=== PATIENT | male | born 1965 | race American Indian/Alaskan Native ===

== ENCOUNTER 2017-08-22 13:10 | Emergency (ER) | payer BC, MEDICARE ==
[2017-08-22] MEDS ORDERED: ASPIRIN PO ONE (13:24)
[2017-08-22 14:13] LABS: Basophils # (Auto) 0.1 K/mm3 (0.0-0.1); Basophils % (Auto) 0.9 % (0.0-1.8); Eosinophils # (Auto) 0.1 K/mm3 (0.0-0.4); Eosinophils % (Auto) 1.1 % (0.0-4.3); Hematocrit 47.7 % (35.5-45.6); Hemoglobin 15.8 gm/dl (11.8-15.2); Lymphocytes # (Auto) 1.6 K/mm3 (1.2-5.4); Lymphocytes % (Auto) 27.2 % (13.4-35.0); Mean Corpuscular HGB Conc 33 % (32-34); Mean Corpuscular Hemoglobin 32 pg (28-32); Mean Corpuscular Volume 96 fl (84-94); Monocytes # (Auto) 0.5 K/mm3 (0.0-0.8); Monocytes % (Auto) 8.3 % (0.0-7.3); Platelet Count 286 K/mm3 (140-440); Red Blood Count 4.97 M/mm3 (3.65-5.03); Red Cell Distribution Width 12.7 % (13.2-15.2)
[2017-08-22 14:35] LABS: BUN/Creatinine Ratio 15; Blood Urea Nitrogen 17 mg/dL (9-20); Calcium 10.1 mg/dL (8.4-10.2); Hemolysis Index 12
--- NOTE | 2017-08-22 20:48 | Emergency Department Report ---
ED Chest Pain HPI - General Chief Complaint: Chest Pain Stated Complaint: CHEST PAINS Time Seen by Provider: 08/22/17 20:47 Source: patient Mode of arrival: Ambulatory Limitations: No Limitations - History of Present Illness Initial Comments: Patient presents with complaint of several episodes of brief, intermittent sharp , aching left sided chest pain, approximately 3 episodes over for the past several days, with some minor sharp discomfort in his left arm as well. Each episode was associated with some activity, either bending over, or reaching with his arm, lasted approximately 15 seconds, subsided without any secondary effects. Discomfort in the arm subsided at approximately the same time. He did not experience any secondary symptoms, no diaphoresis, no radiation elsewhere, no heaviness in the chest, no difficulty breathing, no nausea or vomiting. He does report intermittent episodes of a burning sensation in his middle chest radiating up into his throat, from time to time, generally associated with laying down. He has not had any prior diagnosis, either cardiac or gastrointestinal, and is in good general health, with no history of heart disease, gastric intestinal disease, or diabetes, and he follows with primary care doctor regularly, but takes no routine medications. He does not take aspirin routinely either. He is not a smoker. He is scheduled for his next physical examination in the next 3 or 4 weeks. Patient is asymptomatic at time of examination, but has been comfortable throughout his emergency department stay. -: Sudden Onset: other (with movements, bending or reaching) Pain Location: left chest Pain Radiation: LUE Severity scale (0 -10): 3 Quality: sharp Consistency: intermittent, now resolved Improves With: nothing Worsens With: movement re: denies: nausea, vomting, diaphoresis Other Symptoms: denies: cough, fever Treatments Prior to Arrival: none Aspirin use within the Past 7 Days: (0) No - Related Data Previous Rx's Medication Instructions Recorded Last Taken Type Acetaminophen/Codeine [Tylenol #3] 1 tab PO Q6H PRN #15 tab 01/23/15 Unknown Rx Cyclobenzaprine [Flexeril 10 MG 10 mg PO TID PRN #12 tablet 01/23/15 Unknown Rx TAB] Allergies Allergy/AdvReac Type Severity Reaction Status Date / Time No Known Allergies Allergy Verified 08/22/17 20:48 Heart Score - HEART Score History: Slightly suspicious EKG: Normal Age: 45-65 Risk factors: 1-2 risk factors Troponin: < normal limit HEART Score: 2 ED Review of Systems ROS: Stated complaint: CHEST PAINS Other details as noted in HPI Comment: All other systems reviewed and negative Constitutional: see HPI. denies: chills, fever, weakness Respiratory: no symptoms reported. denies: cough, orthopnea, shortness of breath, SOB with exertion, SOB at rest Cardiovascular: as per HPI Endocrine: no symptoms reported Gastrointestinal: other (burning reflux sensations, separate from current complaint, intermittent). denies: abdominal pain, nausea, vomiting Genitourinary: denies: urgency, dysuria Musculoskeletal: back pain (chronic) Skin: denies: rash, lesions Neurological: denies: headache, weakness, paresthesias Hematological/Lymphatic: denies: easy bleeding, easy bruising ED Past Medical Hx - Past Medical History Previous Medical History?: Yes Additional medical history: chronic back pain. Hypercholesterolemia - Surgical History Past Surgical History?: No - Family History Family history: no significant - Social History Smoking Status: Never Smoker Substance Use Type: None - Medications Home Medications: Home Medications Medication Instructions Recorded Confirmed Last Taken Type Acetaminophen/Codeine [Tylenol #3] 1 tab PO Q6H PRN #15 tab 01/23/15 Unknown Rx Cyclobenzaprine [Flexeril 10 MG 10 mg PO TID PRN #12 tablet 01/23/15 Unknown Rx TAB] ED Physical Exam - General Limitations: No Limitations General appearance: alert, in no apparent distress - Head Head exam: Present: atraumatic, normocephalic - Eye Eye exam: Present: normal appearance - ENT ENT exam: Present: mucous membranes moist - Neck Neck exam: Present: normal inspection, full ROM. Absent: tenderness - Respiratory Respiratory exam: Present: normal lung sounds bilaterally. Absent: wheezes, rales, rhonchi - Cardiovascular Cardiovascular Exam: Present: regular rate, normal heart sounds - GI/Abdominal GI/Abdominal exam: Present: soft. Absent: tenderness, guarding, rebound - Rectal Rectal exam: Present: deferred - Extremities Exam Extremities exam: Present: normal inspection, full ROM. Absent: tenderness - Back Exam Back exam: Present: normal inspection, full ROM. Absent: tenderness, CVA tenderness (R), CVA tenderness (L), muscle spasm, paraspinal tenderness - Neurological Exam Neurological exam: Present: alert, oriented X3 - Psychiatric Psychiatric exam: Present: normal affect, normal mood - Skin Skin exam: Present: warm, dry, intact, normal color. Absent: rash ED Course Vital Signs 08/22/17 08/22/17 08/22/17 13:19 17:09 20:44 Temperature 99.4 F 98.4 F Pulse Rate 97 H 85 78 Respiratory 18 16 16 Rate Blood Pressure 136/98 Blood Pressure 158/102 168/95 [Left] O2 Sat by Pulse 98 98 98 Oximetry 08/22/17 20:52 Temperature Pulse Rate Respiratory 18 Rate Blood Pressure Blood Pressure [Left] O2 Sat by Pulse 98 Oximetry BERTA score - Berta Score Age > 65: (0) No Aspirin use within the Past 7 Days: (0) No 3 or more CAD Risk Factors: (0) No 2 or more Angina events in past 24 hrs: (0) No Known CAD with more than 50% Stenosis: (0) No Elevated Cardiac Markers: (0) No ST Deviation Greater than 0.5mm: (0) No BERTA Score: 0 ED Medical Decision Making - Lab Data Result diagrams: 08/22/17 13:59 08/22/17 13:59 - EKG Data -: EKG Interpreted by Ny EKG shows normal: sinus rhythm, axis (normal QRS access at 69), intervals ( normal OR and QRS intervals, normal QT interval of 408 ms corrected.), QRS complexes (normal QRS complexes), ST-T waves (normal ST and T-wave segments.) - EKG Data When compared to previous EKG there are: previous EKG unavailable - Medical Decision Making Patient has intermittent brief episodes of chest discomfort which is clearly musculoskeletal in nature, associated with activity such as movement or reaching , and has no symptoms are worrisome for acute coronary disease. He has 3 negative troponin levels, has been stable, and has essentially normal examination. He is stable for discharge home, and my only to recommendations are that patient started on low-dose aspirin on a regular basis, and that he have provocative testing, either with nuclear cardiac scan or cardiac stress testing, but this can be safely arranged on an outpatient basis. He has a physician follow-up in within a month, and should be able to have all of this arranged by that time. - Differential Diagnosis muscle skeletal chest wall pain, esophageal reflux, acute cardiac syndrome, Critical Care Time: No Critical care attestation.: If time is entered above; I have spent that time in minutes in the direct care of this critically ill patient, excluding procedure time. ED Disposition Clinical Impression: Non-cardiac chest pain Disposition: DC-01 TO HOME OR SELFCARE Is pt being admited?: No Does the pt Need Aspirin: No Condition: Stable Instructions: Chest Pain (ED) Additional Instructions: Examination today was stable, EKG was stable with no signs of heart damage or instability, and you had 3 negative cardiac blood tests. Your symptoms are more suggestive of musculoskeletal discomfort, and do not suggest a cardiac origin W discomfort. Nonetheless, we recommend that you have provocative testing, which tests your heart activity and function while it is under stress, and this can be safely arranged in your primary care doctor's office. primary care physician at the beginning of the week, but them know that you were seen here in the emergency department and that we recommended that you have a stress test or provocative testing, and they can make further arrangements to have this performed on an outpatient basis. He may continue with her regular activities before, and we also recommend that you may want to consider taking low-dose aspirin daily, such as 81 mg per day. You may return to the emergency department at any time if he have any additional worrisome symptoms, and we will give you an additional examination for any persistence of symptoms. Referrals: PRIMARY CAREMD [Primary Care Provider] - 3-5 Days Time of Disposition: 21:31
[2017-08-22 22:16] VITALS: BP 147/86
== END 2017-08-22 22:16 | disposition home or self-care (01) ==
LOC: ED 13:10
DX: R07.9 Chest pain, unspecified (principal)
CPT/HCPCS: 36415; 80048; 84484; 85025; 93005; 93010

== ENCOUNTER 2018-06-15 05:53 | Inpatient (IN) | payer BC ==
--- NOTE | 2018-06-04 09:56 | Anesthesia Consultation ---
Anesthesia Consult and Med Hx Date of service: 06/04/18 - Airway Anesthetic Teeth Evaluation: Good ROM Head & Neck: Adequate Mental/Hyoid Distance: Adequate Mallampati Class: Class II Intubation Access Assessment: Probably Good - Pulmonary Exam CTA: Yes - Cardiac Exam Cardiac Exam: RRR - Pre-Operative Health Status ASA Pre-Surgery Classification: ASA2 Proposed Anesthetic Plan: General - Pulmonary Hx Smoking: No Hx Sleep Apnea: No (TONY PRE SCREEN HIGH RISK) - Cardiovascular System Hx Hypertension: Yes (X 6 MONTHS) - Central Nervous System Hx Back Pain: Yes (NECK AND CHRONIC BACK PAIN) - Other Systems Hx Cancer: Yes
[2018-06-04 10:11] LABS: Eosinophils # (Auto) 0.1 K/mm3 (0.0-0.4); Eosinophils % (Auto) 1.9 % (0.0-4.3); Hematocrit 44.5 % (35.5-45.6); Hemoglobin 15.4 gm/dl (11.8-15.2); Lymphocytes # (Auto) 1.1 K/mm3 (1.2-5.4); Lymphocytes % (Auto) 24.3 % (13.4-35.0); Mean Corpuscular HGB Conc 35 % (32-34); Mean Corpuscular Volume 96 fl (84-94); Monocytes # (Auto) 0.3 K/mm3 (0.0-0.8); Monocytes % (Auto) 6.1 % (0.0-7.3); Platelet Count 281 K/mm3 (140-440); Red Blood Count 4.66 M/mm3 (3.65-5.03); Red Cell Distribution Width 12.6 % (13.2-15.2)
[2018-06-04 10:21] LABS: INR 0.91 (0.87-1.13)
[2018-06-04 10:22] LABS: Partial Thromboplastin Time 23.2 Sec. (24.2-36.6)
[2018-06-04 10:31] LABS: Albumin 4.3 g/dL (3.9-5); BUN/Creatinine Ratio 16; Blood Urea Nitrogen 13 mg/dL (9-20); Calcium 9.2 mg/dL (8.4-10.2); Hemolysis Index 177
[2018-06-04 10:58] LABS: Alanine Aminotransferase 45 units/L (7-56)
[~2018-06-15 05:53] MED LIST: ANCEF/STERILE WATER 2 GM/20 ML IV NR; NEURONTIN PO NR; VERSED IV NR
[2018-06-15] MEDS ORDERED: VERSED IV NR (06:00)
[2018-06-15] MEDS ORDERED: NACL BACTERIOSTATIC INFILTRATI ONE (06:17)
[2018-06-15] MEDS: LACTATED RINGERS 1,000 ML IV SCH (06:30)
[2018-06-15] MEDS ORDERED: DIPRIVAN 10 MG/ML IV ONE (07:14)
[2018-06-15] MEDS ORDERED: ZEMURON IV ONE (07:14)
[2018-06-15] MEDS ORDERED: DILAUDID ONE (07:14)
[2018-06-15] MEDS ORDERED: XYLOCAINE MPF 2% ONE (07:14)
[2018-06-15] MEDS ORDERED: METHYLENE BLUE ONE (07:38)
--- NOTE | 2018-06-15 07:59 | Anesthesia Day of Surgery ---
Anesthesia Day of Surgery - Day of Surgery Patient Examined: Yes Patient H&P Reviewed: Yes Patient is NPO: Yes
[2018-06-15] MEDS ORDERED: DILAUDID IV PRN (08:02)
[2018-06-15] MEDS ORDERED: ACD-A 500 ML IV ONE (08:23)
[2018-06-15] MEDS ORDERED: THROMBIN (BOVINE) TP ONE ×2 (08:23→09:39)
[2018-06-15] MEDS ORDERED: CALCIUM CHLORIDE IV ONE ×2 (08:23→09:38)
[2018-06-15] MEDS ORDERED: SUBLIMAZE ONE ×2 (08:43→10:46)
[2018-06-15] MEDS ORDERED: METHYLENE BLUE IV ONE (09:36)
[2018-06-15] MEDS ORDERED: ACD-A IV ONE (09:37)
[2018-06-15] MEDS ORDERED: WATER FOR IRRIG STERILE IR ONE (09:40)
[2018-06-15] MEDS ORDERED: NEO SYNEPHRINE/NS Syringe(OR USE) IV ONE (10:15)
[2018-06-15] MEDS ORDERED: ZOFRAN ONE (10:49)
[2018-06-15] MEDS ORDERED: DECADRON ONE (10:49)
[2018-06-15] MEDS ORDERED: BLOXIVERZ ONE (10:49)
[2018-06-15] MEDS ORDERED: ROBINUL ONE (10:49)
[2018-06-15] MEDS ORDERED: ZOFRAN IV PRN (10:56)
[2018-06-15] MEDS ORDERED: AMBIEN PO PRN (10:56)
[2018-06-15] MEDS ORDERED: NARCAN 0.4 MG/1 ML IV PRN (10:56)
[2018-06-15] MEDS ORDERED: ANCEF/NS 1 GM/50 ML 1 GM/50 ML BAG IV SCH (11:00)
[2018-06-15] MEDS ORDERED: ZANAFLEX PO PRN (11:00)
[2018-06-15] MEDS ORDERED: APRESOLINE IV ONE (11:25)
[2018-06-15] MEDS ORDERED: APRESOLINE ONE (11:27)
[2018-06-15] MEDS ORDERED: NORMODYNE IV ONE ×2 (12:30→12:31)
--- NOTE | 2018-06-15 13:29 | Operative Report ---
PREOPERATIVE DIAGNOSIS: Prostate cancer, Alessandra 3+4. POSTOPERATIVE DIAGNOSIS: Prostate cancer, Phelps 3+4. PROCEDURE: Robotic-assisted laparoscopic prostatectomy. SURGEON: Alan Ivory MD DICTATING MACHINE MECHANIC: Swapna Paula. ANESTHESIA: General. ESTIMATED BLOOD LOSS: 400 mL. FLUIDS: Crystalloid and Cell Saver. COMPLICATIONS: None. DRAINS: Emir-Chapman drain x 1. INDICATIONS: This 53-year-old gentleman was originally seen by Dr. Metz with an elevated PSA of 4.2. He underwent transrectal ultrasound and biopsy. His prostate is found to have Alessandra 3+4 at the prostate cancer, two of 12 cores. He was seen by me as a second opinion because he was interested in robotic prostatectomy. Risks, benefits, and complications were explained. The patient agreed to proceed with surgical intervention. DESCRIPTION OF PROCEDURE: The patient was taken to the operative suite, placed in a supine position. After adequate general anesthesia, he was prepped and draped in a sterile fashion. Lucero catheter was placed on the operative field. It was placed in a modified Trendelenburg position. A 1 cm supraumbilical incision was made with the Bovie. Towel clips were placed. Anterior traction was provided. Veress needle was placed. Drop test was negative. Opening pressure was 4 cm of water. Insufflation of the abdomen with CO2 to 15 cm of water, 15 cm cephalad to pubic symphysis was marked and 9 cm and an additional 9 cm was marked on the abdomen. The 10 mm supraumbilical port was placed with the camera followed by the 8 mm ports on the left side under direct vision and then an 8 mm on the right side, a 10 mm and 5 mm helper port was also placed on the right side. The patient was then placed in an exaggerated Trendelenburg position. The patient was noted to have some adhesions on the left side of the colon, which was lysed without difficulty. The robotic graspers were then placed, but the posterior aspect of the prostate and bladder on stretch. The second arch was scored exposing the seminal vesicles and vas deferens. Dissection down to the apex of the prostate was performed without difficulty. Seminal vesicles and vas deferens were dissected out. Vas deferens was then transected. Copious irrigation was performed. Adequate hemostasis achieved. Attention was then taken to the anterior abdominal wall lateral to the lateral umbilical ligament was scored down to the pubic rami and then across the midline to allow the bladder flap to drop. Dorsal vein complex could be identified. It was then controlled with a 60 mm vascular stapler. The endopelvic fascia was opened bilaterally exposing the prostate, which was dissected out. The neurovascular bundle could not be appreciated bilaterally with the area was avoided and it was dissected in an athermal fashion as much as possible. Manipulation of the Lucero allowed the bladder neck to be appreciated was scored anteriorly. Lucero catheter could be appreciated. It was deflated and then used for anterior traction. The patient had a significant median lobe. Indigo carmine was administered intravenously to assist in identifying the ureteral orifices bilaterally and they were uninjured. Bladder neck was transected posteriorly, exposing the seminal vesicles and vas deferens. It was pulled anteriorly and then the lateral pedicles were identified, controlled with the vascular stapler. The Beto were used to dissect down to the apex of the prostate. The distal aspect of the prostate was transected, dissected free and then the prostate was placed in an EndoCatch bag. Copious irrigation was performed. Adequate hemostasis achieved. Bladder neck was then tapered down to a size of an 18-Palestinian Lucero catheter, tapered down at the 5 o'clock and 7 o'clock positions using 2-0 Vicryl in interrupted fashion. Double armed V-Loc stitch was then placed at the 6 o'clock position of the bladder neck corresponding aspect of the urethra and a running stitch was performed bilaterally. A new Lucero catheter was placed into the bladder without difficulty. Anastomotic stitch was cinched down. It was irrigated. No leak, no blood clots. A 15 mL sterile water in the balloon. The V-Loc stitch was then placed at the posterior aspect of the pubic symphysis to aid incontinence. Copious irrigation was performed. Adequate hemostasis achieved. Platelet rich plasma and platelet poor plasma was injected around the anastomosis. A 10 mm Emir-Chapman drain was brought out through the robotic port on the left side tied into position with 2-0 silk. The robot was undocked. The patient was placed in a supine position. The supraumbilical incision was extended to allow removal of the prostate. Rectus fascia was then closed with 0 Vicryl in a [id number] fashion. The skin was closed with 3-0 Monocryl in an interrupted fashion. Emir-Chapman drain was secured with 2-0 silk at the skin. Lucero catheter site port was folded over and tied with 0 silk in interrupted fashion. The patient tolerated the procedure well and was extubated and taken to recovery room. He will be observed overnight. Swapna Paula was present throughout the procedure at the bedside to assist with surgical dissection. The patient will go home on Bactrim and Lisle. JOB# [id number] [facility]
--- NOTE | 2018-06-15 13:29 | Consultation ---
History of Present Illness - Reason for Consult Consult date: 06/15/18 Requesting physician: HENRIK IVORY - History of Present Illness 53 YO Male with HTN, HLD admitted to [facility] for elective prostate surgery. Consult placed by Dr. Ivory for medical management. Pt seen and evaluated upon arrival to his room. Pt denies fever, chills, CP, palpitations, NVD, Trauma, BRBPR, Unintentional weight loss, night sweats, bone pain, or recent ill contacts. No reported nursing events. Pr resting comfortably and states that his pain is controlled at time of exam. Past History Past Medical History: hypertension, hyperlipidemia Past Surgical History: Other (Prostate) Social history: , lives with family. denies: smoking, alcohol abuse, prescription drug abuse Family history: hypertension Medications and Allergies Allergies Allergy/AdvReac Type Severity Reaction Status Date / Time No Known Allergies Allergy Verified 08/22/17 20:48 Home Medications Medication Instructions Recorded Confirmed Last Taken Type HYDROcodone/ACETAMINOPHEN 1 each PO PRN PRN 06/01/18 06/15/18 06/14/18 History [Hydrocodone-Acetamin 5-325 mg] Rosuvastatin (Nf) [Crestor] 5 mg PO QHS 06/01/18 06/01/18 06/14/18 History amLODIPine [Norvasc] 5 mg PO DAILY 06/01/18 06/15/18 06/15/18 05:30 History tiZANidine [Zanaflex] 4 mg PO PRN PRN 06/01/18 06/01/18 06/14/18 History Active Meds: Active Medications Acetaminophen/Hydrocodone Bitart ([place] 5/325) 2 each PO Q4H PRN PRN Reason: Pain, Moderate (4-6) Amlodipine Besylate (Norvasc) 5 mg PO DAILY CHARISSE Atorvastatin Calcium (Lipitor) 10 mg PO QHS CHARISSE Cefazolin Sodium (Ancef/Sterile Water 2 Gm/20 Ml) 2 gm IV PREOP NR Stop: 06/15/18 18:00 Hydromorphone HCl (Dilaudid) 0.5 mg IV Q10MIN PRN PRN Reason: Pain , Severe (7-10) Stop: 06/15/18 20:00 Last Admin: 06/15/18 11:37 Dose: 0.5 mg Documented by: Lactated Ringer's (Lactated Ringers) 1,000 mls @ 75 mls/hr IV DIRECT CHARISSE Last Admin: 06/15/18 06:30 Dose: 75 mls/hr Documented by: Cefazolin Sodium (Ancef/Ns 1 Gm/50 Ml) 1 gm in 50 mls @ 100 mls/hr IV Q8H CHARISSE; Protocol Stop: 06/15/18 19:29 Lactated Ringer's (Lactated Ringers) 1,000 mls @ 125 mls/hr IV DIRECT CHARISSE Midazolam HCl (Versed) 2 mg IV PREOP NR Stop: 06/15/18 18:00 Last Admin: 06/15/18 07:15 Dose: 2 mg Documented by: Morphine Sulfate (Morphine) 4 mg IV Q4H PRN PRN Reason: Pain , Severe (7-10) Naloxone HCl (Narcan 0.4 Mg/1 Ml) 0.1 mg IV Q2MIN PRN PRN Reason: Res Rate </= 8 or 02 SAT < 92% Ondansetron HCl (Zofran) 4 mg IV Q8H PRN PRN Reason: Nausea And Vomiting Tizanidine HCl (Zanaflex) 4 mg PO PRN PRN PRN Reason: Spasms Zolpidem Tartrate (Ambien) 5 mg PO QHS PRN PRN Reason: Sleep Review of Systems Constitutional: no weight loss, no weight gain, no fever, no chills Ears, nose, mouth and throat: no ear pain, no ear discharge, no tinnitis, no decreased hearing, no nose pain Cardiovascular: no chest pain, no orthopnea, no palpitations, no rapid/irregular heart beat, no edema Respiratory: no cough, no cough with sputum, no excessive sputum, no hemoptysis, no shortness of breath Gastrointestinal: no nausea, no vomiting, no diarrhea, no constipation, no change in bowel habits Genitourinary Male: no hematuria, no flank pain, no discharge, no urinary frequency, no urinary hesitancy, no nocturia Rectal: no pain, no incontinence, no bleeding Musculoskeletal: no neck stiffness, no neck pain, no shooting arm pain, no arm numbness/tingling, no low back pain, no shooting leg pain Integumentary: no rash, no pruritis, no redness, no sores, no wounds, no jaundice Neurological: no head injury, no transient paralysis, no paralysis, no weakness, no parathesias, no numbness, no tingling, no seizures Psychiatric: no anxiety, no memory loss, no change in sleep habits, no sleep disturbances, no insomnia, no hypersomnia, no change in appetite, no change in libido Endocrine: no cold intolerance, no heat intolerance, no polyphagia, no excessive thirst, no polydipsia, no polyuria, no nocturia Hematologic/Lymphatic: no easy bruising, no easy bleeding, no lymphadenopathy, no lymphedema Allergic/Immunologic: no urticaria, no allergic rhinitis, no persistent infections, no anaphylaxis Exam - Constitutional Vitals: Temp Pulse Resp BP Pulse Ox 98.5 F 104 H 18 119/72 97 06/15/18 13:15 06/15/18 13:15 06/15/18 13:15 06/15/18 13:15 06/15/18 13:15 General appearance: Present: no acute distress, well-nourished - EENT Eyes: Present: PERRL ENT: hearing intact, clear oral mucosa - Neck Neck: Present: supple, normal ROM - Respiratory Respiratory effort: normal Respiratory: bilateral: CTA - Cardiovascular Heart Sounds: Present: S1 & S2. Absent: rub, click - Extremities Extremities: pulses symmetrical, No edema Peripheral Pulses: within normal limits - Abdominal General gastrointestinal: Present: soft, non-tender, non-distended, normal bowel sounds Male genitourinary: Present: normal - Integumentary Integumentary: Present: clear, warm, dry - Musculoskeletal Musculoskeletal: gait normal, strength equal bilaterally - Psychiatric Psychiatric: appropriate mood/affect, intact judgment & insight - Neurologic Neurologic: CNII-XII intact, moves all extremities Results - Labs CBC & Chem 7: 06/04/18 09:20 06/04/18 09:20 Assessment and Plan - Patient Problems (1) HTN (hypertension) Current Visit: Yes Status: Acute Qualifiers: Hypertension type: essential hypertension Qualified Code(s): I10 - Essential (primary) hypertension Plan to address problem: Monitor BP q shift, resume prehospital medication, supportive care. (2) HLD (hyperlipidemia) Current Visit: Yes Status: Acute Qualifiers: Hyperlipidemia type: mixed hyperlipidemia Qualified Code(s): E78.2 - Mixed hyperlipidemia Plan to address problem: Low cholesterol diet, risk factor reduction therapy, statin therapy
--- NOTE | 2018-06-15 13:51 | Post Anesthesia Evaluation ---
- Post Anesthesia Evaluation Patient Participated: Yes Airway Patent: Yes Stable Respiratory Function: Yes Nausea/Vomiting: No Temp > 96.8F: Yes Pain Manageable: Yes Adequeate Hydration: Yes Anesthesia Complications: No
[2018-06-15] MEDS ORDERED: NACL 0.9% 1,000 ML IR ONE (15:13)
[2018-06-15] MEDS: MORPHINE IV PRN (15:17)
[2018-06-15] MEDS ORDERED: APRESOLINE IV PRN (17:31)
[2018-06-15 21:12] LABS: Hematocrit 42.7 % (35.5-45.6); Hemoglobin 14.3 gm/dl (11.8-15.2); Mean Corpuscular HGB Conc 34 % (32-34); Mean Corpuscular Volume 97 fl (84-94); Platelet Count 295 K/mm3 (140-440); Red Blood Count 4.41 M/mm3 (3.65-5.03); Red Cell Distribution Width 12.8 % (13.2-15.2)
[2018-06-15 21:34] LABS: BUN/Creatinine Ratio 8; Blood Urea Nitrogen 9 mg/dL (9-20); Calcium 9.3 mg/dL (8.4-10.2); Hemolysis Index 11
[2018-06-15] MEDS: NORCO 5/325 PO PRN (21:55)
[2018-06-15] MEDS ORDERED: NON-FORMULARY (Rosuvastatin (Nf) 5 MG) PO SCH (22:00)
[2018-06-15 23:09] LABS: Band Neutrophils # (Manual) 0.5 K/mm3; Basophils % (Manual) 0 % (0.0-1.8); Eosinophils % (Manual) 0 % (0.0-4.3); Total Cells Counted 100
[2018-06-15 23:10] LABS: Ovalocytes Few; Platelet Estimate Consistent w Auto
--- NOTE | 2018-06-16 00:15 | Cat Scan Report ---
PROCEDURE: CT ANGIO CHEST TECHNIQUE: A CT angiogram was performed of the chest following the intravenous injection of IV contr ast. Rotational, sagittal, and coronal MIP reconstructions were reviewed. There are no previous studi es available for comparison. HISTORY: TACHYCARDIA WITH ELEVATED D-DIMER R/O PE COMPARISONS: None FINDINGS: The heart size and thoracic aorta appear normal. There is no evidence of pericardial effusion. There is no evidence of pulmonary embolus or vascular congestion. The lungs reveal mild bibasilar atelectas is. There are no infiltrates or effusions. At the thoracic inlet there are multiple subcentimeter in diameter low-attenuation foci in both thyroid lobes. In the upper abdomen there are small foci of free air. There is subcutaneous air along the right ches t wall. There is also a 2.1 cm low density left adrenal nodule. The skeletal structures do not show a ny acute changes. IMPRESSION: No evidence of embolus, vascular congestion, or aortic dissection. Mild bibasilar atelectasis. No infiltrates or effusions. Post operative pneumoperitoneum noted in the upper abdomen along with postsurgical changes along the right side of the abdominal wall. The findings were discussed with nurse Melissa Aguilar at 12:12 AM on 06/16/2018. This document is electronically signed by Brayan Casey MD., June 16 2018 12:13:23 AM ET
[2018-06-16] MEDS: LACTATED RINGERS 1,000 ML IV SCH ×3 (00:27→13:41)
[2018-06-16] MEDS: ANCEF/NS 1 GM/50 ML 1 GM/50 ML BAG IV SCH ×2 (01:07→08:13)
[2018-06-16 04:46] LABS: Basophils % (Auto) 0.3 % (0.0-1.8); Hematocrit 39.8 % (35.5-45.6); Hemoglobin 13.5 gm/dl (11.8-15.2); Lymphocytes # (Auto) 0.6 K/mm3 (1.2-5.4); Lymphocytes % (Auto) 5.5 % (13.4-35.0); Mean Corpuscular HGB Conc 34 % (32-34); Mean Corpuscular Volume 95 fl (84-94); Monocytes # (Auto) 0.8 K/mm3 (0.0-0.8); Monocytes % (Auto) 7.9 % (0.0-7.3); Platelet Count 271 K/mm3 (140-440); Red Blood Count 4.17 M/mm3 (3.65-5.03); Red Cell Distribution Width 12.5 % (13.2-15.2)
[2018-06-16 05:02] LABS: BUN/Creatinine Ratio 10; Blood Urea Nitrogen 10 mg/dL (9-20); Calcium 9.2 mg/dL (8.4-10.2); Hemolysis Index 28
[2018-06-16] MEDS: NORVASC PO SCH ×2 (08:13→10:00)
--- NOTE | 2018-06-16 12:26 | Progress Note ---
Assessment and Plan Assessment and plan: --Status post robotic laparoscopy prostatectomy; Management per urology --Hypertension; moderate control, continue current antihypertensives and when necessary medications --Dyslipidemia; continue statin --Elevated D dimers; negative PE on CTA chest Check lower extremity venous Doppler to rule out DVT --DVT prophylaxis; SCDs, postop status Defer pharmacologic anticoagulation to urology History Interval history: Patient seen and examined medical records reviewed No new events reported by the nursing staff Patient complains of mild pain Alert awake oriented In mild distress Vital signs reviewed Hospitalist Physical - Constitutional Vitals: Temp Pulse Resp BP Pulse Ox 98.1 F 78 18 111/73 99 06/16/18 07:54 06/16/18 08:13 06/16/18 07:54 06/16/18 08:13 06/16/18 07:39 General appearance: Present: no acute distress, well-nourished - EENT Eyes: Present: PERRL, EOM intact - Neck Neck: Present: supple, normal ROM - Respiratory Respiratory effort: normal Respiratory: bilateral: diminished, negative: rales, rhonchi, wheezing - Cardiovascular Rhythm: regular Heart Sounds: Present: S1 & S2 - Extremities Extremities: no ischemia, No edema - Abdominal General gastrointestinal: soft, non-tender, non-distended, normal bowel sounds - Integumentary Integumentary: Present: clear, warm - Psychiatric Psychiatric: appropriate mood/affect, cooperative - Neurologic Neurologic: moves all extremities Results - Labs CBC & Chem 7: 06/16/18 04:31 06/16/18 04:31 Labs: Laboratory Last Values WBC 10.0 K/mm3 (4.5-11.0) 06/16/18 04:31 RBC 4.17 M/mm3 (3.65-5.03) 06/16/18 04:31 Hgb 13.5 gm/dl (11.8-15.2) 06/16/18 04:31 Hct 39.8 % (35.5-45.6) 06/16/18 04:31 MCV 95 fl (84-94) H 06/16/18 04:31 MCH 32 pg (28-32) 06/16/18 04:31 MCHC 34 % (32-34) 06/16/18 04:31 RDW 12.5 % (13.2-15.2) L 06/16/18 04:31 Plt Count 271 K/mm3 (140-440) 06/16/18 04:31 Lymph % (Auto) 5.5 % (13.4-35.0) L 06/16/18 04:31 [place] % (Auto) 7.9 % (0.0-7.3) H 06/16/18 04:31 Eos % (Auto) 0.0 % (0.0-4.3) 06/16/18 04:31 Baso % (Auto) 0.3 % (0.0-1.8) 06/16/18 04:31 Lymph # 0.6 K/mm3 (1.2-5.4) L 06/16/18 04:31 [place] # 0.8 K/mm3 (0.0-0.8) 06/16/18 04:31 Eos # 0.0 K/mm3 (0.0-0.4) 06/16/18 04:31 Baso # 0.0 K/mm3 (0.0-0.1) 06/16/18 04:31 Add Manual Diff Complete 06/15/18 20:52 Total Counted 100 06/15/18 20:52 Seg Neutrophils % 86.3 % (40.0-70.0) H 06/16/18 04:31 Seg Neuts % (Manual) 84.0 % (40.0-70.0) H 06/15/18 20:52 Band Neutrophils % 4.0 % 06/15/18 20:52 Lymphocytes % (Manual) 9.0 % (13.4-35.0) L 06/15/18 20:52 Reactive Lymphs % (Man) 0 % 06/15/18 20:52 Monocytes % (Manual) 3.0 % (0.0-7.3) 06/15/18 20:52 Eosinophils % (Manual) 0 % (0.0-4.3) 06/15/18 20:52 Basophils % (Manual) 0 % (0.0-1.8) 06/15/18 20:52 Metamyelocytes % 0 % 06/15/18 20:52 Myelocytes % 0 % 06/15/18 20:52 Promyelocytes % 0 % 06/15/18 20:52 Blast Cells % 0 % 06/15/18 20:52 Nucleated RBC % Not Reportable 06/15/18 20:52 Seg Neutrophils # 8.6 K/mm3 (1.8-7.7) H 06/16/18 04:31 Seg Neutrophils # Man 10.8 K/mm3 (1.8-7.7) H 06/15/18 20:52 Band Neutrophils # 0.5 K/mm3 06/15/18 20:52 Lymphocytes # (Manual) 1.2 K/mm3 (1.2-5.4) 06/15/18 20:52 Abs React Lymphs (Man) 0.0 K/mm3 06/15/18 20:52 Monocytes # (Manual) 0.4 K/mm3 (0.0-0.8) 06/15/18 20:52 Eosinophils # (Manual) 0.0 K/mm3 (0.0-0.4) 06/15/18 20:52 Basophils # (Manual) 0.0 K/mm3 (0.0-0.1) 06/15/18 20:52 Metamyelocytes # 0.0 K/mm3 06/15/18 20:52 Myelocytes # 0.0 K/mm3 06/15/18 20:52 Promyelocytes # 0.0 K/mm3 06/15/18 20:52 Blast Cells # 0.0 K/mm3 06/15/18 20:52 WBC Morphology Not Reportable 06/15/18 20:52 Hypersegmented Neuts Not Reportable 06/15/18 20:52 Hyposegmented Neuts Not Reportable 06/15/18 20:52 Hypogranular Neuts Not Reportable 06/15/18 20:52 Smudge Cells Not Reportable 06/15/18 20:52 Toxic Granulation Not Reportable 06/15/18 20:52 Toxic Vacuolation Not Reportable 06/15/18 20:52 Dohle Bodies Not Reportable 06/15/18 20:52 Pelger-Huet Anomaly Not Reportable 06/15/18 20:52 Scottie Rods Not Reportable 06/15/18 20:52 Platelet Estimate Consistent w auto 06/15/18 20:52 Clumped Platelets Not Reportable 06/15/18 20:52 Plt Clumps, EDTA Not Reportable 06/15/18 20:52 Large Platelets Not Reportable 06/15/18 20:52 Giant Platelets Not Reportable 06/15/18 20:52 Platelet Satelliting Not Reportable 06/15/18 20:52 Plt Morphology Comment Not Reportable 06/15/18 20:52 RBC Morphology Not Reportable 06/15/18 20:52 Dimorphic RBCs Not Reportable 06/15/18 20:52 Polychromasia Not Reportable 06/15/18 20:52 Hypochromasia Not Reportable 06/15/18 20:52 Poikilocytosis Not Reportable 06/15/18 20:52 Anisocytosis Not Reportable 06/15/18 20:52 Microcytosis Not Reportable 06/15/18 20:52 Macrocytosis Not Reportable 06/15/18 20:52 Spherocytes Not Reportable 06/15/18 20:52 Pappenheimer Bodies Not Reportable 06/15/18 20:52 Sickle Cells Not Reportable 06/15/18 20:52 Target Cells Not Reportable 06/15/18 20:52 Tear Drop Cells Not Reportable 06/15/18 20:52 Ovalocytes Few 06/15/18 20:52 Helmet Cells Not Reportable 06/15/18 20:52 Jerome-Ezel Bodies Not Reportable 06/15/18 20:52 [place] Rings Not Reportable 06/15/18 20:52 Jbphh Cells Not Reportable 06/15/18 20:52 Bite Cells Not Reportable 06/15/18 20:52 Crenated Cell Not Reportable 06/15/18 20:52 Elliptocytes Not Reportable 06/15/18 20:52 Acanthocytes (Spur) Not Reportable 06/15/18 20:52 Rouleaux Not Reportable 06/15/18 20:52 Hemoglobin C Crystals Not Reportable 06/15/18 20:52 Schistocytes Not Reportable 06/15/18 20:52 Malaria parasites Not Reportable 06/15/18 20:52 Wilmer Bodies Not Reportable 06/15/18 20:52 Hem Pathologist Commnt No 06/15/18 20:52 PT 12.8 Sec. (12.2-14.9) 06/04/18 09:20 INR 0.91 (0.87-1.13) 06/04/18 09:20 APTT 23.2 Sec. (24.2-36.6) L 06/04/18 09:20 D-Dimer 3533.79 ng/mlDDU (0-234) H 06/15/18 22:02 Sodium 135 mmol/L (137-145) L 06/16/18 04:31 Potassium 4.4 mmol/L (3.6-5.0) 06/16/18 04:31 Chloride 101.9 mmol/L (98-107) 06/16/18 04:31 Carbon Dioxide 26 mmol/L (22-30) 06/16/18 04:31 Anion Gap 12 mmol/L 06/16/18 04:31 BUN 10 mg/dL (9-20) 06/16/18 04:31 Creatinine 1.0 mg/dL (0.8-1.5) 06/16/18 04:31 Estimated GFR > 60 ml/min 06/16/18 04:31 BUN/Creatinine Ratio 10 % 06/16/18 04:31 Glucose 127 mg/dL (75-100) H 06/16/18 04:31 Calcium 9.2 mg/dL (8.4-10.2) 06/16/18 04:31 Total Bilirubin 0.90 mg/dL (0.1-1.2) 06/04/18 09:20 AST 42 units/L (5-40) H 06/04/18 09:20 ALT 45 units/L (7-56) 06/04/18 09:20 Alkaline Phosphatase 43 units/L (35-129) 06/04/18 09:20 Total Protein 7.0 g/dL (6.3-8.2) 06/04/18 09:20 Albumin 4.3 g/dL (3.9-5) 06/04/18 09:20 Albumin/Globulin Ratio 1.6 % 06/04/18 09:20 Blood Type A POSITIVE 06/15/18 06:30 Antibody Screen Negative 06/15/18 06:30 Active Medications - Current Medications Current Medications: Generic Name Dose Route Start Last Admin Trade Name Freq PRN Reason Stop Dose Admin Acetaminophen/Hydrocodone Bitart 2 each 06/15/18 10:56 06/15/18 21:55 [place] 5/325 PO 2 each Q4H PRN Administration Pain, Moderate (4-6) Amlodipine Besylate 5 mg 06/16/18 10:00 06/16/18 08:13 Norvasc PO 5 mg DAILY CHARISSE Administration Atorvastatin Calcium 10 mg 06/15/18 22:00 06/15/18 21:55 Lipitor PO 10 mg QHS CHARISSE Administration Hydralazine HCl 10 mg 06/15/18 17:31 Apresoline IV Q8HR PRN Hypertension Lactated Ringer's 1,000 mls @ 75 mls/hr 06/04/18 10:00 06/15/18 06:30 Lactated Ringers IV 75 mls/hr DIRECT CHARISSE Administration Lactated Ringer's 1,000 mls @ 125 mls/hr 06/15/18 11:00 06/16/18 00:27 Lactated Ringers IV 125 mls/hr DIRECT CHARISSE Administration Morphine Sulfate 4 mg 06/15/18 10:56 06/15/18 15:17 Morphine IV 4 mg Q4H PRN Administration Pain , Severe (7-10) Naloxone HCl 0.1 mg 06/15/18 10:56 Narcan 0.4 Mg/1 Ml IV Q2MIN PRN Res Rate </= 8 or 02 SAT < 92% Ondansetron HCl 4 mg 06/15/18 10:56 Zofran IV Q8H PRN Nausea And Vomiting Tizanidine HCl 4 mg 06/15/18 11:00 Zanaflex PO PRN PRN Spasms Zolpidem Tartrate 5 mg 06/15/18 10:56 Ambien PO QHS PRN Sleep
[2018-06-16] MEDS: NORCO 5/325 PO PRN (13:37)
[2018-06-16] MEDS: MORPHINE IV PRN ×2 (17:32→21:29)
--- NOTE | 2018-06-16 18:23 | Progress Note ---
Subjective Date of service: 06/16/18 Interval history: s/p robotic prostatectomy increased heart rate -----ct angio neg for PE + nausea today abd alittle distended labs ok au pink urine obs repeat labs in am ?home friday Objective - Constitutional Vitals: Vital Signs - 12hr 06/16/18 06/16/18 06/16/18 07:39 07:54 08:13 Temperature 98.1 F Pulse Rate 78 78 Respiratory 18 Rate Blood Pressure 111/73 Blood Pressure 111/73 [Left] O2 Sat by Pulse 99 Oximetry 06/16/18 06/16/18 12:24 12:25 Temperature 98.0 F Pulse Rate 90 87 Respiratory 18 Rate Blood Pressure 132/79 Blood Pressure [Left] O2 Sat by Pulse 100 100 Oximetry - Labs CBC & Chem 7: 06/16/18 04:31 06/16/18 04:31 Labs: Abnormal lab results 06/15/18 06/15/18 06/15/18 Range/Units 20:52 20:52 22:02 WBC 12.8 H (4.5-11.0) K/mm3 MCV 97 H (84-94) fl MCH 33 H (28-32) pg RDW 12.8 L (13.2-15.2) % Lymph % (Auto) (13.4-35.0) % [place] % (Auto) (0.0-7.3) % Lymph # (1.2-5.4) K/mm3 Seg Neutrophils % (40.0-70.0) % Seg Neuts % (Manual) 84.0 H (40.0-70.0) % Lymphocytes % (Manual) 9.0 L (13.4-35.0) % Seg Neutrophils # (1.8-7.7) K/mm3 Seg Neutrophils # Man 10.8 H (1.8-7.7) K/mm3 D-Dimer 3533.79 H (0-234) ng/mlDDU Sodium 134 L (137-145) mmol/L Glucose 160 H (75-100) mg/dL 06/16/18 06/16/18 Range/Units 04:31 04:31 WBC (4.5-11.0) K/mm3 MCV 95 H (84-94) fl MCH (28-32) pg RDW 12.5 L (13.2-15.2) % Lymph % (Auto) 5.5 L (13.4-35.0) % [place] % (Auto) 7.9 H (0.0-7.3) % Lymph # 0.6 L (1.2-5.4) K/mm3 Seg Neutrophils % 86.3 H (40.0-70.0) % Seg Neuts % (Manual) (40.0-70.0) % Lymphocytes % (Manual) (13.4-35.0) % Seg Neutrophils # 8.6 H (1.8-7.7) K/mm3 Seg Neutrophils # Man (1.8-7.7) K/mm3 D-Dimer (0-234) ng/mlDDU Sodium 135 L (137-145) mmol/L Glucose 127 H (75-100) mg/dL Medications & Allergies - Medications Allergies/Adverse Reactions: Allergies No Known Allergies Allergy (Verified 08/22/17 20:48) Home Medications: Home Medications Medication Instructions Recorded Confirmed Last Taken Type HYDROcodone/ACETAMINOPHEN 1 each PO PRN PRN 06/01/18 06/15/18 06/14/18 History [Hydrocodone-Acetamin 5-325 mg] Rosuvastatin (Nf) [Crestor] 5 mg PO QHS 06/01/18 06/01/18 06/14/18 History amLODIPine [Norvasc] 5 mg PO DAILY 06/01/18 06/15/18 06/15/18 05:30 History tiZANidine [Zanaflex] 4 mg PO PRN PRN 06/01/18 06/01/18 06/14/18 History Active Medications: Generic Name Dose Route Start Last Admin Trade Name Freq PRN Reason Stop Dose Admin Acetaminophen/Hydrocodone Bitart 2 each 06/15/18 10:56 06/16/18 13:37 [place] 5/325 PO 2 each Q4H PRN Administration Pain, Moderate (4-6) Amlodipine Besylate 5 mg 06/16/18 10:00 06/16/18 10:00 Norvasc PO Not Given DAILY CHARISSE Atorvastatin Calcium 10 mg 06/15/18 22:00 06/15/18 21:55 Lipitor PO 10 mg QHS CHARISSE Administration Hydralazine HCl 10 mg 06/15/18 17:31 Apresoline IV Q8HR PRN Hypertension Lactated Ringer's 1,000 mls @ 75 mls/hr 06/04/18 10:00 06/15/18 19:50 Lactated Ringers IV Infused DIRECT CHARISSE Infusion Lactated Ringer's 1,000 mls @ 125 mls/hr 06/15/18 11:00 06/16/18 13:41 Lactated Ringers IV 125 mls/hr DIRECT CHARISSE Administration Morphine Sulfate 4 mg 06/15/18 10:56 06/15/18 15:17 Morphine IV 4 mg Q4H PRN Administration Pain , Severe (7-10) Naloxone HCl 0.1 mg 06/15/18 10:56 Narcan 0.4 Mg/1 Ml IV Q2MIN PRN Res Rate </= 8 or 02 SAT < 92% Ondansetron HCl 4 mg 06/15/18 10:56 Zofran IV Q8H PRN Nausea And Vomiting Tizanidine HCl 4 mg 06/15/18 11:00 Zanaflex PO PRN PRN Spasms Zolpidem Tartrate 5 mg 06/15/18 10:56 Ambien PO QHS PRN Sleep
--- NOTE | 2018-06-16 21:44 | Vascular Lab Report ---
PROCEDURE: VL VENOUS DUPLEX LE BILAT TECHNIQUE: Routine Doppler compression imaging was obtained of the deep venous systems of both lower extremities. Augmentation maneuvers and waveforms recorded. HISTORY: elevated d dimers,r/o DVT COMPARISONS: None FINDINGS: All of the deep veins compress normally bilaterally. The waveforms appear normal. IMPRESSION: Normal exam. No evidence of DVT in either lower extremity.. This document is electronically signed by Brayan Casey MD., June 16 2018 09:42:59 PM ET
[2018-06-17] MEDS: MORPHINE IV PRN ×3 (05:54→18:53)
[2018-06-17] MEDS: LACTATED RINGERS 1,000 ML IV SCH ×2 (05:55→17:40)
[2018-06-17] MEDS: NORVASC PO SCH ×2 (07:50→10:00)
--- NOTE | 2018-06-17 14:58 | Progress Note ---
Assessment and Plan Assessment and plan: --Tachycardia; Check 12-lead EKG, to rule out arrhythmia Low-dose beta blockers, echocardiogram for LV function and ejection fraction Consider cardiology evaluation if abnormality noted on EKG --Abdominal discomfort and flatulence; Advised the patient to ambulate as tolerated semithacone/gassex when necessary --Status post robotic laparoscopy prostatectomy; Management per urology --Hypertension; moderate control, continue current antihypertensives and when necessary medications --Dyslipidemia; continue statin --Elevated D dimers; negative PE on CTA chest Check lower extremity venous Doppler to rule out DVT --DVT prophylaxis; SCDs, postop status Defer pharmacologic anticoagulation to urology History Interval history: Patient seen and examined medical records reviewed Patient feels slightly better, continues to have tachycardia Denies chest pain or shortness of breath Complaints of flatulence Vital signs noted Hospitalist Physical - Constitutional Vitals: Temp Pulse Resp BP Pulse Ox 99.3 F 122 H 18 149/95 99 06/17/18 12:22 06/17/18 12:22 06/17/18 12:22 06/17/18 12:22 06/17/18 13:29 General appearance: Present: no acute distress, well-nourished - EENT Eyes: Present: PERRL, EOM intact - Neck Neck: Present: supple, normal ROM - Respiratory Respiratory effort: normal Respiratory: bilateral: diminished, negative: rales, rhonchi, wheezing - Cardiovascular Rhythm: regular Heart Sounds: Present: S1 & S2 - Extremities Extremities: no ischemia, No edema - Abdominal General gastrointestinal: soft, non-tender, non-distended, normal bowel sounds - Integumentary Integumentary: Present: clear, warm - Psychiatric Psychiatric: appropriate mood/affect, cooperative - Neurologic Neurologic: moves all extremities Results - Labs CBC & Chem 7: 06/16/18 04:31 06/16/18 04:31 Labs: Laboratory Last Values WBC 10.0 K/mm3 (4.5-11.0) 06/16/18 04:31 RBC 4.17 M/mm3 (3.65-5.03) 06/16/18 04:31 Hgb 13.5 gm/dl (11.8-15.2) 06/16/18 04:31 Hct 39.8 % (35.5-45.6) 06/16/18 04:31 MCV 95 fl (84-94) H 06/16/18 04:31 MCH 32 pg (28-32) 06/16/18 04:31 MCHC 34 % (32-34) 06/16/18 04:31 RDW 12.5 % (13.2-15.2) L 06/16/18 04:31 Plt Count 271 K/mm3 (140-440) 06/16/18 04:31 Lymph % (Auto) 5.5 % (13.4-35.0) L 06/16/18 04:31 [place] % (Auto) 7.9 % (0.0-7.3) H 06/16/18 04:31 Eos % (Auto) 0.0 % (0.0-4.3) 06/16/18 04:31 Baso % (Auto) 0.3 % (0.0-1.8) 06/16/18 04:31 Lymph # 0.6 K/mm3 (1.2-5.4) L 06/16/18 04:31 [place] # 0.8 K/mm3 (0.0-0.8) 06/16/18 04:31 Eos # 0.0 K/mm3 (0.0-0.4) 06/16/18 04:31 Baso # 0.0 K/mm3 (0.0-0.1) 06/16/18 04:31 Add Manual Diff Complete 06/15/18 20:52 Total Counted 100 06/15/18 20:52 Seg Neutrophils % 86.3 % (40.0-70.0) H 06/16/18 04:31 Seg Neuts % (Manual) 84.0 % (40.0-70.0) H 06/15/18 20:52 Band Neutrophils % 4.0 % 06/15/18 20:52 Lymphocytes % (Manual) 9.0 % (13.4-35.0) L 06/15/18 20:52 Reactive Lymphs % (Man) 0 % 06/15/18 20:52 Monocytes % (Manual) 3.0 % (0.0-7.3) 06/15/18 20:52 Eosinophils % (Manual) 0 % (0.0-4.3) 06/15/18 20:52 Basophils % (Manual) 0 % (0.0-1.8) 06/15/18 20:52 Metamyelocytes % 0 % 06/15/18 20:52 Myelocytes % 0 % 06/15/18 20:52 Promyelocytes % 0 % 06/15/18 20:52 Blast Cells % 0 % 06/15/18 20:52 Nucleated RBC % Not Reportable 06/15/18 20:52 Seg Neutrophils # 8.6 K/mm3 (1.8-7.7) H 06/16/18 04:31 Seg Neutrophils # Man 10.8 K/mm3 (1.8-7.7) H 06/15/18 20:52 Band Neutrophils # 0.5 K/mm3 06/15/18 20:52 Lymphocytes # (Manual) 1.2 K/mm3 (1.2-5.4) 06/15/18 20:52 Abs React Lymphs (Man) 0.0 K/mm3 06/15/18 20:52 Monocytes # (Manual) 0.4 K/mm3 (0.0-0.8) 06/15/18 20:52 Eosinophils # (Manual) 0.0 K/mm3 (0.0-0.4) 06/15/18 20:52 Basophils # (Manual) 0.0 K/mm3 (0.0-0.1) 06/15/18 20:52 Metamyelocytes # 0.0 K/mm3 06/15/18 20:52 Myelocytes # 0.0 K/mm3 06/15/18 20:52 Promyelocytes # 0.0 K/mm3 06/15/18 20:52 Blast Cells # 0.0 K/mm3 06/15/18 20:52 WBC Morphology Not Reportable 06/15/18 20:52 Hypersegmented Neuts Not Reportable 06/15/18 20:52 Hyposegmented Neuts Not Reportable 06/15/18 20:52 Hypogranular Neuts Not Reportable 06/15/18 20:52 Smudge Cells Not Reportable 06/15/18 20:52 Toxic Granulation Not Reportable 06/15/18 20:52 Toxic Vacuolation Not Reportable 06/15/18 20:52 Dohle Bodies Not Reportable 06/15/18 20:52 Pelger-Huet Anomaly Not Reportable 06/15/18 20:52 Scottie Rods Not Reportable 06/15/18 20:52 Platelet Estimate Consistent w auto 06/15/18 20:52 Clumped Platelets Not Reportable 06/15/18 20:52 Plt Clumps, EDTA Not Reportable 06/15/18 20:52 Large Platelets Not Reportable 06/15/18 20:52 Giant Platelets Not Reportable 06/15/18 20:52 Platelet Satelliting Not Reportable 06/15/18 20:52 Plt Morphology Comment Not Reportable 06/15/18 20:52 RBC Morphology Not Reportable 06/15/18 20:52 Dimorphic RBCs Not Reportable 06/15/18 20:52 Polychromasia Not Reportable 06/15/18 20:52 Hypochromasia Not Reportable 06/15/18 20:52 Poikilocytosis Not Reportable 06/15/18 20:52 Anisocytosis Not Reportable 06/15/18 20:52 Microcytosis Not Reportable 06/15/18 20:52 Macrocytosis Not Reportable 06/15/18 20:52 Spherocytes Not Reportable 06/15/18 20:52 Pappenheimer Bodies Not Reportable 06/15/18 20:52 Sickle Cells Not Reportable 06/15/18 20:52 Target Cells Not Reportable 06/15/18 20:52 Tear Drop Cells Not Reportable 06/15/18 20:52 Ovalocytes Few 06/15/18 20:52 Helmet Cells Not Reportable 06/15/18 20:52 Jerome-[place] Bodies Not Reportable 06/15/18 20:52 [place] Rings Not Reportable 06/15/18 20:52 [place] Cells Not Reportable 06/15/18 20:52 Bite Cells Not Reportable 06/15/18 20:52 Crenated Cell Not Reportable 06/15/18 20:52 Elliptocytes Not Reportable 06/15/18 20:52 Acanthocytes (Spur) Not Reportable 06/15/18 20:52 Rouleaux Not Reportable 06/15/18 20:52 Hemoglobin C Crystals Not Reportable 06/15/18 20:52 Schistocytes Not Reportable 06/15/18 20:52 Malaria parasites Not Reportable 06/15/18 20:52 Wilmer Bodies Not Reportable 06/15/18 20:52 Hem Pathologist Commnt No 06/15/18 20:52 PT 12.8 Sec. (12.2-14.9) 06/04/18 09:20 INR 0.91 (0.87-1.13) 06/04/18 09:20 APTT 23.2 Sec. (24.2-36.6) L 06/04/18 09:20 D-Dimer 3533.79 ng/mlDDU (0-234) H 06/15/18 22:02 Sodium 135 mmol/L (137-145) L 06/16/18 04:31 Potassium 4.4 mmol/L (3.6-5.0) 06/16/18 04:31 Chloride 101.9 mmol/L (98-107) 06/16/18 04:31 Carbon Dioxide 26 mmol/L (22-30) 06/16/18 04:31 Anion Gap 12 mmol/L 06/16/18 04:31 BUN 10 mg/dL (9-20) 06/16/18 04:31 Creatinine 1.0 mg/dL (0.8-1.5) 06/16/18 04:31 Estimated GFR > 60 ml/min 06/16/18 04:31 BUN/Creatinine Ratio 10 % 06/16/18 04:31 Glucose 127 mg/dL (75-100) H 06/16/18 04:31 Calcium 9.2 mg/dL (8.4-10.2) 06/16/18 04:31 Total Bilirubin 0.90 mg/dL (0.1-1.2) 06/04/18 09:20 AST 42 units/L (5-40) H 06/04/18 09:20 ALT 45 units/L (7-56) 06/04/18 09:20 Alkaline Phosphatase 43 units/L (35-129) 06/04/18 09:20 Total Protein 7.0 g/dL (6.3-8.2) 06/04/18 09:20 Albumin 4.3 g/dL (3.9-5) 06/04/18 09:20 Albumin/Globulin Ratio 1.6 % 06/04/18 09:20 Blood Type A POSITIVE 06/15/18 06:30 Antibody Screen Negative 06/15/18 06:30 Active Medications - Current Medications Current Medications: Generic Name Dose Route Start Last Admin Trade Name Freq PRN Reason Stop Dose Admin Acetaminophen/Hydrocodone Bitart 2 each 06/15/18 10:56 06/16/18 13:37 [place] 5/325 PO 2 each Q4H PRN Administration Pain, Moderate (4-6) Amlodipine Besylate 5 mg 06/16/18 10:00 06/17/18 10:00 Norvasc PO Not Given DAILY CHARISSE Atorvastatin Calcium 10 mg 06/15/18 22:00 06/16/18 21:29 Lipitor PO 10 mg QHS CHARISSE Administration Hydralazine HCl 10 mg 06/15/18 17:31 Apresoline IV Q8HR PRN Hypertension Lactated Ringer's 1,000 mls @ 75 mls/hr 06/04/18 10:00 06/15/18 19:50 Lactated Ringers IV Infused DIRECT CHARISSE Infusion Lactated Ringer's 1,000 mls @ 125 mls/hr 06/15/18 11:00 06/17/18 05:55 Lactated Ringers IV 125 mls/hr DIRECT CHARISSE Administration Morphine Sulfate 4 mg 06/15/18 10:56 06/17/18 11:36 Morphine IV 4 mg Q4H PRN Administration Pain , Severe (7-10) Naloxone HCl 0.1 mg 06/15/18 10:56 Narcan 0.4 Mg/1 Ml IV Q2MIN PRN Res Rate </= 8 or 02 SAT < 92% Ondansetron HCl 4 mg 06/15/18 10:56 Zofran IV Q8H PRN Nausea And Vomiting Tizanidine HCl 4 mg 06/15/18 11:00 Zanaflex PO PRN PRN Spasms Zolpidem Tartrate 5 mg 06/15/18 10:56 Ambien PO QHS PRN Sleep
--- NOTE | 2018-06-17 16:24 | Progress Note ---
Subjective Date of service: 06/17/18 Interval history: s/p robotic prostatectomy increased heart rate -----ct angio neg for PE & nurse at bedside + nausea today abd alittle distended labs ok au pink urine A/P drain removed today cards to see for increased heart rate Objective - Constitutional Vitals: Vital Signs - 12hr 06/17/18 06/17/18 06/17/18 05:48 05:54 06:03 Temperature 98.8 F 97.6 F Pulse Rate 125 H 65 Respiratory 17 16 17 Rate Blood Pressure Blood Pressure 151/106 140/76 [Left] O2 Sat by Pulse 95 100 Oximetry 06/17/18 06/17/18 06/17/18 06:24 07:44 07:50 Temperature 98.7 F Pulse Rate 129 H 136 H Respiratory 17 18 Rate Blood Pressure 150/98 150/90 Blood Pressure [Left] O2 Sat by Pulse 97 Oximetry 06/17/18 06/17/18 12:22 13:29 Temperature 99.3 F Pulse Rate 122 H Respiratory 18 Rate Blood Pressure 149/95 Blood Pressure [Left] O2 Sat by Pulse 99 99 Oximetry - Labs CBC & Chem 7: 06/16/18 04:31 06/16/18 04:31 Medications & Allergies - Medications Allergies/Adverse Reactions: Allergies No Known Allergies Allergy (Verified 08/22/17 20:48) Home Medications: Home Medications Medication Instructions Recorded Confirmed Last Taken Type HYDROcodone/ACETAMINOPHEN 1 each PO PRN PRN 06/01/18 06/15/18 06/14/18 History [Hydrocodone-Acetamin 5-325 mg] Rosuvastatin (Nf) [Crestor] 5 mg PO QHS 06/01/18 06/01/18 06/14/18 History amLODIPine [Norvasc] 5 mg PO DAILY 06/01/18 06/15/18 06/15/18 05:30 History tiZANidine [Zanaflex] 4 mg PO PRN PRN 06/01/18 06/01/18 06/14/18 History Active Medications: Generic Name Dose Route Start Last Admin Trade Name Freq PRN Reason Stop Dose Admin Acetaminophen/Hydrocodone Bitart 2 each 06/15/18 10:56 06/16/18 13:37 Tibbie 5/325 PO 2 each Q4H PRN Administration Pain, Moderate (4-6) Amlodipine Besylate 5 mg 06/16/18 10:00 06/17/18 10:00 Norvasc PO Not Given DAILY CHARISSE Atorvastatin Calcium 10 mg 06/15/18 22:00 06/16/18 21:29 Lipitor PO 10 mg QHS CHARISSE Administration Hydralazine HCl 10 mg 06/15/18 17:31 Apresoline IV Q8HR PRN Hypertension Lactated Ringer's 1,000 mls @ 125 mls/hr 06/15/18 11:00 06/17/18 05:55 Lactated Ringers IV 125 mls/hr DIRECT CHARISSE Administration Metoprolol Tartrate 12.5 mg 06/17/18 22:00 Lopressor PO BID CHARISSE Morphine Sulfate 4 mg 06/15/18 10:56 06/17/18 11:36 Morphine IV 4 mg Q4H PRN Administration Pain , Severe (7-10) Naloxone HCl 0.1 mg 06/15/18 10:56 Narcan 0.4 Mg/1 Ml IV Q2MIN PRN Res Rate </= 8 or 02 SAT < 92% Ondansetron HCl 4 mg 06/15/18 10:56 Zofran IV Q8H PRN Nausea And Vomiting Tizanidine HCl 4 mg 06/15/18 11:00 Zanaflex PO PRN PRN Spasms Zolpidem Tartrate 5 mg 06/15/18 10:56 Ambien PO QHS PRN Sleep
[2018-06-17] MEDS: LOPRESSOR PO SCH (18:59)
[2018-06-18] MEDS: MORPHINE IV PRN ×4 (00:52→17:51)
[2018-06-18] MEDS: LACTATED RINGERS 1,000 ML IV SCH ×3 (04:07→20:23)
[2018-06-18] MEDS: NORVASC PO SCH (09:25)
[2018-06-18] MEDS: LOPRESSOR PO SCH ×3 (09:26→21:47)
--- NOTE | 2018-06-18 11:15 | Consultation ---
History of Present Illness Consult date: 06/18/18 Requesting physician: ARNOL LUNA Consult reason: tachycardia History of present illness: The pt is a 53 YO Male with HTN, HLD admitted to [facility] for elective prostate surgery and is s/p robotic prostatectomy. He is previously unknown to our practice. He was noted to have sinus tachycardia and thus cardiology has been c onsulted. Pt noted to be in ST with HR 100s on telemetry and ECG. Pt denies any current cardiac complaints. He denies any prior cardiac history. He denies any prior cardiac w/u. Past History Past Medical History: hypertension, hyperlipidemia Past Surgical History: Other (Prostate) Social history: , lives with family. denies: smoking, alcohol abuse, prescription drug abuse Family history: hypertension Medications and Allergies Allergies Allergy/AdvReac Type Severity Reaction Status Date / Time No Known Allergies Allergy Verified 08/22/17 20:48 Home Medications Medication Instructions Recorded Confirmed Last Taken Type HYDROcodone/ACETAMINOPHEN 1 each PO PRN PRN 06/01/18 06/15/18 06/14/18 History [Hydrocodone-Acetamin 5-325 mg] Rosuvastatin (Nf) [Crestor] 5 mg PO QHS 06/01/18 06/01/18 06/14/18 History amLODIPine [Norvasc] 5 mg PO DAILY 06/01/18 06/15/18 06/15/18 05:30 History tiZANidine [Zanaflex] 4 mg PO PRN PRN 06/01/18 06/01/18 06/14/18 History Active Meds: Active Medications Acetaminophen/Hydrocodone Bitart ([place] 5/325) 2 each PO Q4H PRN PRN Reason: Pain, Moderate (4-6) Last Admin: 06/16/18 13:37 Dose: 2 each Documented by: Amlodipine Besylate (Norvasc) 5 mg PO DAILY [facility] Last Admin: 06/18/18 09:25 Dose: 5 mg Documented by: Atorvastatin Calcium (Lipitor) 10 mg PO QHS [facility] Last Admin: 06/17/18 21:37 Dose: 10 mg Documented by: Hydralazine HCl (Apresoline) 10 mg IV Q8HR PRN PRN Reason: Hypertension Lactated Ringer's (Lactated Ringers) 1,000 mls @ 125 mls/hr IV DIRECT [facility] Last Admin: 06/18/18 04:07 Dose: 125 mls/hr Documented by: Metoprolol Tartrate (Lopressor) 12.5 mg PO BID [facility] Last Admin: 06/18/18 09:26 Dose: 12.5 mg Documented by: Morphine Sulfate (Morphine) 4 mg IV Q4H PRN PRN Reason: Pain , Severe (7-10) Last Admin: 06/18/18 07:52 Dose: 4 mg Documented by: Naloxone HCl (Narcan 0.4 Mg/1 Ml) 0.1 mg IV Q2MIN PRN PRN Reason: Res Rate </= 8 or 02 SAT < 92% Ondansetron HCl (Zofran) 4 mg IV Q8H PRN PRN Reason: Nausea And Vomiting Tizanidine HCl (Zanaflex) 4 mg PO PRN PRN PRN Reason: Spasms Zolpidem Tartrate (Ambien) 5 mg PO QHS PRN PRN Reason: Sleep Review of Systems All systems: negative (pain r/t prostate surgery) Cardiovascular: high blood pressure, no chest pain, no palpitations, no rapid/irregular heart beat, no edema, no syncope, no lightheadedness, no shortness of breath, no dyspnea on exertion, no paroxysmal nocturnal dyspnea, no leg edema, no decreased exercise tolerance Physical Examination Vital Signs Temp Pulse Resp BP Pulse Ox 98.7 F 92 H 20 151/96 100 06/04/18 09:30 06/04/18 09:30 06/04/18 09:30 06/04/18 09:30 06/04/18 09:30 General appearance: no acute distress HEENT: Positive: PERRL, Normocephaly, Mucus Membranes Moist Neck: Positive: neck supple, trachea midline Cardiac: Positive: Regular Rhythm, S1/S2 Lungs: Positive: clear to auscultation Neuro: Positive: Grossly Intact Abdomen: Negative: Tender Skin: Negative: Rash Musculoskeletal: No Pain Extremities: Absent: edema Results 06/16/18 04:31 06/16/18 04:31 - Imaging and Cardiology Echo: pending EKG: report reviewed, image reviewed EKG interpretations - Telemetry EKG Rhythm: Sinus Tachycardia - EKG Sinus rhythms and dysrhythmias: sinus tachycardia Assessment and Plan Cont IVF per primary. Optimize BPs and HR - increase lopressor to 25mg BID. Obtain thyroid profile. F/u echo. The patient has been seen in conjunction with Dr. Yasmine Kern who agrees with the assessment and plan of care. - Patient Problems (1) Sinus tachycardia Current Visit: Yes Status: Acute (2) S/P prostatectomy Current Visit: Yes Status: Acute (3) HTN (hypertension) Current Visit: Yes Status: Chronic Qualifiers: Hypertension type: essential hypertension Qualified Code(s): I10 - Essential (primary) hypertension (4) HLD (hyperlipidemia) Current Visit: Yes Status: Chronic Qualifiers: Hyperlipidemia type: mixed hyperlipidemia Qualified Code(s): E78.2 - Mixed hyperlipidemia
--- NOTE | 2018-06-18 17:27 | Progress Note ---
Subjective Date of service: 06/18/18 Interval history: s/p robotic prostatectomy increased heart rate -----ct angio neg for PE + nausea today abd alittle distended labs ok au pink urine A/P appreciate Cards input Objective - Constitutional Vitals: Vital Signs - 12hr 06/18/18 06/18/18 06/18/18 07:49 07:52 08:22 Temperature 99.1 F Pulse Rate 116 H Respiratory 19 19 19 Rate Blood Pressure 150/94 O2 Sat by Pulse 96 Oximetry 06/18/18 06/18/18 06/18/18 11:04 12:41 15:24 Temperature 98.8 F 98.6 F Pulse Rate 95 H 109 H 99 H Respiratory 18 18 Rate Blood Pressure 146/88 145/89 O2 Sat by Pulse 97 99 Oximetry 06/18/18 15:25 Temperature Pulse Rate 98 H Respiratory Rate Blood Pressure O2 Sat by Pulse 95 Oximetry - Labs CBC & Chem 7: 06/16/18 04:31 06/16/18 04:31 Medications & Allergies - Medications Allergies/Adverse Reactions: Allergies No Known Allergies Allergy (Verified 08/22/17 20:48) Home Medications: Home Medications Medication Instructions Recorded Confirmed Last Taken Type HYDROcodone/ACETAMINOPHEN 1 each PO PRN PRN 06/01/18 06/15/18 06/14/18 History [Hydrocodone-Acetamin 5-325 mg] Rosuvastatin (Nf) [Crestor] 5 mg PO QHS 06/01/18 06/01/18 06/14/18 History amLODIPine [Norvasc] 5 mg PO DAILY 06/01/18 06/15/18 06/15/18 05:30 History tiZANidine [Zanaflex] 4 mg PO PRN PRN 06/01/18 06/01/18 06/14/18 History Active Medications: Generic Name Dose Route Start Last Admin Trade Name Freq PRN Reason Stop Dose Admin Acetaminophen/Hydrocodone Bitart 2 each 06/15/18 10:56 06/16/18 13:37 [place] 5/325 PO 2 each Q4H PRN Administration Pain, Moderate (4-6) Amlodipine Besylate 5 mg 06/16/18 10:00 06/18/18 09:25 Norvasc PO 5 mg DAILY CHARISSE Administration Atorvastatin Calcium 10 mg 06/15/18 22:00 06/17/18 21:37 Lipitor PO 10 mg QHS CHARISSE Administration Hydralazine HCl 10 mg 06/15/18 17:31 Apresoline IV Q8HR PRN Hypertension Lactated Ringer's 1,000 mls @ 125 mls/hr 06/15/18 11:00 06/18/18 12:34 Lactated Ringers IV 125 mls/hr DIRECT CHARISSE Administration Metoprolol Tartrate 25 mg 06/18/18 13:00 06/18/18 12:41 Lopressor PO 25 mg BID CHARISSE Administration Morphine Sulfate 4 mg 06/15/18 10:56 06/18/18 12:41 Morphine IV 4 mg Q4H PRN Administration Pain , Severe (7-10) Naloxone HCl 0.1 mg 06/15/18 10:56 Narcan 0.4 Mg/1 Ml IV Q2MIN PRN Res Rate </= 8 or 02 SAT < 92% Ondansetron HCl 4 mg 06/15/18 10:56 Zofran IV Q8H PRN Nausea And Vomiting Tizanidine HCl 4 mg 06/15/18 11:00 Zanaflex PO PRN PRN Spasms Zolpidem Tartrate 5 mg 06/15/18 10:56 Ambien PO QHS PRN Sleep
--- NOTE | 2018-06-18 19:41 | Progress Note ---
Assessment and Plan Assessment and plan: --Sinus Tachycardia; Continue beta blockers, follow echocardiogram for LV function and ejection fraction Cardiology evaluation and recommendations noted --Status post robotic laparoscopy prostatectomy; Management per urology --Hypertension; moderate control, continue current antihypertensives and when necessary medications --Dyslipidemia; continue statin --Elevated D dimers; negative PE on CTA chest Negative DVT --DVT prophylaxis; SCDs, postop status Increase ambulation as tolerated Continue current management Plan of care reviewed with the patient and his nurse History Interval history: Patient seen and examined medical records reviewed Patient feels better no new complaints Vitals noted Hospitalist Physical - Constitutional Vitals: Temp Pulse Resp BP Pulse Ox 98.6 F 98 H 18 145/89 95 06/18/18 15:24 06/18/18 15:25 06/18/18 15:24 06/18/18 15:24 06/18/18 15:25 General appearance: Present: no acute distress, well-nourished - EENT Eyes: Present: PERRL, EOM intact - Neck Neck: Present: supple, normal ROM - Respiratory Respiratory effort: normal Respiratory: bilateral: diminished, negative: rales, rhonchi, wheezing - Cardiovascular Rhythm: regular Heart Sounds: Present: S1 & S2 - Extremities Extremities: no ischemia, No edema - Abdominal General gastrointestinal: soft, non-tender, non-distended, normal bowel sounds - Integumentary Integumentary: Present: clear, warm - Psychiatric Psychiatric: appropriate mood/affect, cooperative - Neurologic Neurologic: moves all extremities Results - Labs CBC & Chem 7: 06/16/18 04:31 06/16/18 04:31 Labs: Laboratory Last Values WBC 10.0 K/mm3 (4.5-11.0) 06/16/18 04:31 RBC 4.17 M/mm3 (3.65-5.03) 06/16/18 04:31 Hgb 13.5 gm/dl (11.8-15.2) 06/16/18 04:31 Hct 39.8 % (35.5-45.6) 06/16/18 04:31 MCV 95 fl (84-94) H 06/16/18 04:31 MCH 32 pg (28-32) 06/16/18 04:31 MCHC 34 % (32-34) 06/16/18 04:31 RDW 12.5 % (13.2-15.2) L 06/16/18 04:31 Plt Count 271 K/mm3 (140-440) 06/16/18 04:31 Lymph % (Auto) 5.5 % (13.4-35.0) L 06/16/18 04:31 [place] % (Auto) 7.9 % (0.0-7.3) H 06/16/18 04:31 Eos % (Auto) 0.0 % (0.0-4.3) 06/16/18 04:31 Baso % (Auto) 0.3 % (0.0-1.8) 06/16/18 04:31 Lymph # 0.6 K/mm3 (1.2-5.4) L 06/16/18 04:31 [place] # 0.8 K/mm3 (0.0-0.8) 06/16/18 04:31 Eos # 0.0 K/mm3 (0.0-0.4) 06/16/18 04:31 Baso # 0.0 K/mm3 (0.0-0.1) 06/16/18 04:31 Add Manual Diff Complete 06/15/18 20:52 Total Counted 100 06/15/18 20:52 Seg Neutrophils % 86.3 % (40.0-70.0) H 06/16/18 04:31 Seg Neuts % (Manual) 84.0 % (40.0-70.0) H 06/15/18 20:52 Band Neutrophils % 4.0 % 06/15/18 20:52 Lymphocytes % (Manual) 9.0 % (13.4-35.0) L 06/15/18 20:52 Reactive Lymphs % (Man) 0 % 06/15/18 20:52 Monocytes % (Manual) 3.0 % (0.0-7.3) 06/15/18 20:52 Eosinophils % (Manual) 0 % (0.0-4.3) 06/15/18 20:52 Basophils % (Manual) 0 % (0.0-1.8) 06/15/18 20:52 Metamyelocytes % 0 % 06/15/18 20:52 Myelocytes % 0 % 06/15/18 20:52 Promyelocytes % 0 % 06/15/18 20:52 Blast Cells % 0 % 06/15/18 20:52 Nucleated RBC % Not Reportable 06/15/18 20:52 Seg Neutrophils # 8.6 K/mm3 (1.8-7.7) H 06/16/18 04:31 Seg Neutrophils # Man 10.8 K/mm3 (1.8-7.7) H 06/15/18 20:52 Band Neutrophils # 0.5 K/mm3 06/15/18 20:52 Lymphocytes # (Manual) 1.2 K/mm3 (1.2-5.4) 06/15/18 20:52 Abs React Lymphs (Man) 0.0 K/mm3 06/15/18 20:52 Monocytes # (Manual) 0.4 K/mm3 (0.0-0.8) 06/15/18 20:52 Eosinophils # (Manual) 0.0 K/mm3 (0.0-0.4) 06/15/18 20:52 Basophils # (Manual) 0.0 K/mm3 (0.0-0.1) 06/15/18 20:52 Metamyelocytes # 0.0 K/mm3 06/15/18 20:52 Myelocytes # 0.0 K/mm3 06/15/18 20:52 Promyelocytes # 0.0 K/mm3 06/15/18 20:52 Blast Cells # 0.0 K/mm3 06/15/18 20:52 WBC Morphology Not Reportable 06/15/18 20:52 Hypersegmented Neuts Not Reportable 06/15/18 20:52 Hyposegmented Neuts Not Reportable 06/15/18 20:52 Hypogranular Neuts Not Reportable 06/15/18 20:52 Smudge Cells Not Reportable 06/15/18 20:52 Toxic Granulation Not Reportable 06/15/18 20:52 Toxic Vacuolation Not Reportable 06/15/18 20:52 Dohle Bodies Not Reportable 06/15/18 20:52 Pelger-Huet Anomaly Not Reportable 06/15/18 20:52 Scottie Rods Not Reportable 06/15/18 20:52 Platelet Estimate Consistent w auto 06/15/18 20:52 Clumped Platelets Not Reportable 06/15/18 20:52 Plt Clumps, EDTA Not Reportable 06/15/18 20:52 Large Platelets Not Reportable 06/15/18 20:52 Giant Platelets Not Reportable 06/15/18 20:52 Platelet Satelliting Not Reportable 06/15/18 20:52 Plt Morphology Comment Not Reportable 06/15/18 20:52 RBC Morphology Not Reportable 06/15/18 20:52 Dimorphic RBCs Not Reportable 06/15/18 20:52 Polychromasia Not Reportable 06/15/18 20:52 Hypochromasia Not Reportable 06/15/18 20:52 Poikilocytosis Not Reportable 06/15/18 20:52 Anisocytosis Not Reportable 06/15/18 20:52 Microcytosis Not Reportable 06/15/18 20:52 Macrocytosis Not Reportable 06/15/18 20:52 Spherocytes Not Reportable 06/15/18 20:52 Pappenheimer Bodies Not Reportable 06/15/18 20:52 Sickle Cells Not Reportable 06/15/18 20:52 Target Cells Not Reportable 06/15/18 20:52 Tear Drop Cells Not Reportable 06/15/18 20:52 Ovalocytes Few 06/15/18 20:52 Helmet Cells Not Reportable 06/15/18 20:52 [place] Bodies Not Reportable 06/15/18 20:52 [place] Rings Not Reportable 06/15/18 20:52 Jason Cells Not Reportable 06/15/18 20:52 Bite Cells Not Reportable 06/15/18 20:52 Crenated Cell Not Reportable 06/15/18 20:52 Elliptocytes Not Reportable 06/15/18 20:52 Acanthocytes (Spur) Not Reportable 06/15/18 20:52 Rouleaux Not Reportable 06/15/18 20:52 Hemoglobin C Crystals Not Reportable 06/15/18 20:52 Schistocytes Not Reportable 06/15/18 20:52 Malaria parasites Not Reportable 06/15/18 20:52 Wilmer Bodies Not Reportable 06/15/18 20:52 Hem Pathologist Commnt No 06/15/18 20:52 PT 12.8 Sec. (12.2-14.9) 06/04/18 09:20 INR 0.91 (0.87-1.13) 06/04/18 09:20 APTT 23.2 Sec. (24.2-36.6) L 06/04/18 09:20 D-Dimer 3533.79 ng/mlDDU (0-234) H 06/15/18 22:02 Sodium 135 mmol/L (137-145) L 06/16/18 04:31 Potassium 4.4 mmol/L (3.6-5.0) 06/16/18 04:31 Chloride 101.9 mmol/L (98-107) 06/16/18 04:31 Carbon Dioxide 26 mmol/L (22-30) 06/16/18 04:31 Anion Gap 12 mmol/L 06/16/18 04:31 BUN 10 mg/dL (9-20) 06/16/18 04:31 Creatinine 1.0 mg/dL (0.8-1.5) 06/16/18 04:31 Estimated GFR > 60 ml/min 06/16/18 04:31 BUN/Creatinine Ratio 10 % 06/16/18 04:31 Glucose 127 mg/dL (75-100) H 06/16/18 04:31 Calcium 9.2 mg/dL (8.4-10.2) 06/16/18 04:31 Total Bilirubin 0.90 mg/dL (0.1-1.2) 06/04/18 09:20 AST 42 units/L (5-40) H 06/04/18 09:20 ALT 45 units/L (7-56) 06/04/18 09:20 Alkaline Phosphatase 43 units/L (35-129) 06/04/18 09:20 Total Protein 7.0 g/dL (6.3-8.2) 06/04/18 09:20 Albumin 4.3 g/dL (3.9-5) 06/04/18 09:20 Albumin/Globulin Ratio 1.6 % 06/04/18 09:20 TSH 1.250 mlU/mL (0.270-4.200) 06/18/18 12:01 Free T4 1.25 ng/dL (0.76-1.46) 06/18/18 12:01 Blood Type A POSITIVE 06/15/18 06:30 Antibody Screen Negative 06/15/18 06:30 Active Medications - Current Medications Current Medications: Generic Name Dose Route Start Last Admin Trade Name Freq PRN Reason Stop Dose Admin Acetaminophen/Hydrocodone Bitart 2 each 06/15/18 10:56 06/16/18 13:37 [place] 5/325 PO 2 each Q4H PRN Administration Pain, Moderate (4-6) Amlodipine Besylate 5 mg 06/16/18 10:00 06/18/18 09:25 Norvasc PO 5 mg DAILY CHARISSE Administration Atorvastatin Calcium 10 mg 06/15/18 22:00 06/17/18 21:37 Lipitor PO 10 mg QHS CHARISSE Administration Hydralazine HCl 10 mg 06/15/18 17:31 Apresoline IV Q8HR PRN Hypertension Lactated Ringer's 1,000 mls @ 125 mls/hr 06/15/18 11:00 06/18/18 12:34 Lactated Ringers IV 125 mls/hr DIRECT CHARISSE Administration Metoprolol Tartrate 25 mg 06/18/18 13:00 06/18/18 12:41 Lopressor PO 25 mg BID CHARISSE Administration Morphine Sulfate 4 mg 06/15/18 10:56 06/18/18 17:51 Morphine IV 4 mg Q4H PRN Administration Pain , Severe (7-10) Naloxone HCl 0.1 mg 06/15/18 10:56 Narcan 0.4 Mg/1 Ml IV Q2MIN PRN Res Rate </= 8 or 02 SAT < 92% Ondansetron HCl 4 mg 06/15/18 10:56 Zofran IV Q8H PRN Nausea And Vomiting Tizanidine HCl 4 mg 06/15/18 11:00 Zanaflex PO PRN PRN Spasms Zolpidem Tartrate 5 mg 06/15/18 10:56 Ambien PO QHS PRN Sleep
[2018-06-18] MEDS: NORCO 5/325 PO PRN (20:23)
[2018-06-19] MEDS: NORCO 5/325 PO PRN (02:18)
[2018-06-19] MEDS: LACTATED RINGERS 1,000 ML IV SCH (03:28)
[2018-06-19] MEDS: NORVASC PO SCH (10:38)
[2018-06-19] MEDS: MORPHINE IV PRN (10:39)
[2018-06-19] MEDS: LOPRESSOR PO SCH (10:39)
--- NOTE | 2018-06-19 11:04 | Progress Note ---
Assessment and Plan clinically stable no sxs sr tte unremarkable july d/c home f/u me in office - Patient Problems (1) Sinus tachycardia Current Visit: Yes Status: Acute (2) HLD (hyperlipidemia) Current Visit: Yes Status: Chronic Qualifiers: Hyperlipidemia type: mixed hyperlipidemia Qualified Code(s): E78.2 - Mixed hyperlipidemia (3) HTN (hypertension) Current Visit: Yes Status: Chronic Qualifiers: Hypertension type: essential hypertension Qualified Code(s): I10 - Essential (primary) hypertension Subjective Date of service: 06/19/18 Interval history: no complaints Objective Vital Signs Temp Pulse Resp BP BP Pulse Ox 06/19/18 10:39 93 H 126/71 06/19/18 10:38 93 H 126/71 06/19/18 09:12 97 06/19/18 08:00 98.9 F 93 H 20 126/71 97 06/19/18 04:55 99.3 F 84 20 132/79 96 06/18/18 23:19 98.2 F 89 20 121/79 93 06/18/18 19:37 100.3 F H 107 H 20 138/87 94 06/18/18 15:25 98 H 95 06/18/18 15:24 98.6 F 99 H 18 145/89 99 06/18/18 12:41 109 H 06/18/18 11:04 98.8 F 95 H 18 146/88 97 - Physical Examination HEENT: Positive: PERRL, Normocephaly, Mucus Membranes Moist Neck: Positive: neck supple, trachea midline Neuro: Positive: Grossly Intact Abdomen: Negative: Tender Skin: Negative: Rash Musculoskeletal: No Pain Extremities: Absent: edema - Imaging and Cardiology EKG: report reviewed, image reviewed Echo: pending - EKG Sinus rhythms and dysrhythmias: sinus tachycardia
[2018-06-19 12:13] VITALS: BP 112/61
--- NOTE | 2018-06-19 12:57 | Discharge Summary ---
Providers - Providers Date of Admission: 06/17/18 14:16 Date of discharge: 06/19/18 Attending physician: HENRIK TEMPLETON 06/15/18 Consult to Case Management [CONS] Routine Services Needed at Discharge: Home Health Services Notified:: cm notified Additional Physician Instructions: eval for au care and dialy needs 06/15/18 10:56 Consult to Physician [CONS] Routine Comment: Consulting Provider: MICAH SWIFT Physician Instructions: Reason For Exam: HTN, CHOL 06/17/18 18:43 Consult to Physician [CONS] Routine Comment: COMPLETED - YAMEL Consulting Provider: VANESSA BARRERA Physician Instructions: Reason For Exam: Tachycardia[per urology] Primary care physician: HEMAL LERMA Hospitalization Condition: Stable Pertinent studies: ct angio neg for pe echo of heart normal Procedures: ct angio neg for pe echo of heart normal robotic prostatectomy Hospital course: increased heart rate prompted cards consult & med changed--improved Disposition: DC-01 TO HOME OR SELFCARE Core Measure Documentation - Palliative Care Palliative Care/ Comfort Measures: Not Applicable - Core Measures Any of the following diagnoses?: none - VTE Discharge Requirements Deep Vein Thrombosis/Pulmonary Embolism Present on Admission: No Has pt received <5 days of overlap therapy or INR<2.0: No Anticoagulant overlap therapy prescribed at discharge: No Contraindication No Overlap Therapy order at DC: Medical Contraindication - Acute [place] Discharge Requirements Aspirin at discharge: No Reason for no aspirin on DC: Surgical contraindication SY/ARB for LVSD if EF <40%: Not Applicable Reason for no SY/ARB: Medical contraindication Beta theron at discharge: No Reason for no beta theron on DC: Medical contraindication Statin for LDL = or >100 mg/dl on DC: Not Applicable Reason for no statin on DC: Surgical contraindication - Heart Failure Discharge Requirements SY/ARB for LVSD if EF <40%: Not Applicable Reason for no SY/ARB: Medical contraindication Beta theron at discharge: Yes - Stroke Discharge Requirements Statin for LDL = or >70 mg/dl on DC: Not Applicable Reason for no statin on DC: Medical Contraindication Anticoag for atrial fib/atrial flutter: Not Applicable Reason for no anticoag for AF/F on DC: Medical Contraindication Antithrombotic for ischemic stroke: No Reason for no antithrombotic on DC: Medical Contraindication Exam - Constitutional Vitals: Temp Pulse Resp BP Pulse Ox 97.5 F L 85 18 112/61 98 06/19/18 12:00 06/19/18 12:00 06/19/18 12:00 06/19/18 12:00 06/19/18 12:00 General appearance: Present: no acute distress, well-nourished - EENT Eyes: Present: PERRL ENT: hearing intact, clear oral mucosa - Neck Neck: Present: supple, normal ROM - Respiratory Respiratory effort: normal Respiratory: bilateral: CTA - Cardiovascular Heart Sounds: Present: S1 & S2. Absent: rub, click - Extremities Extremities: pulses symmetrical, No edema Peripheral Pulses: within normal limits - Abdominal General gastrointestinal: Present: soft, non-tender, non-distended, normal bowel sounds Male genitourinary: Present: normal - Integumentary Integumentary: Present: clear, warm, dry - Musculoskeletal Musculoskeletal: gait normal, strength equal bilaterally - Psychiatric Psychiatric: appropriate mood/affect, intact judgment & insight - Neurologic Neurologic: CNII-XII intact, moves all extremities Plan Activity: advance as tolerated Diet: regular Wound: open to air Follow up with: HEMAL LERMA MD [Primary Care Provider] - 7 Days
--- NOTE | 2018-06-19 13:31 | Progress Note ---
Assessment and Plan Assessment and plan: --Sinus Tachycardia; resolved Neurology evaluated --Status post robotic laparoscopy prostatectomy; Management per urology --Hypertension; moderate control, continue current antihypertensives and when necessary medications --Dyslipidemia; continue statin --Elevated D dimers; negative PE on CTA chest Negative DVT --DVT prophylaxis; SCDs, postop status Increase ambulation as tolerated Patient is medically stable for discharge History Interval history: Patient seen and examined medical records reviewed No new events reported by nursing Patient feels better ambulatory tolerating oral nutrition Vital signs noted Hospitalist Physical - Constitutional Vitals: Temp Pulse Resp BP Pulse Ox 97.5 F L 85 18 112/61 98 06/19/18 12:00 06/19/18 12:00 06/19/18 12:00 06/19/18 12:00 06/19/18 12:00 General appearance: Present: no acute distress, well-nourished - EENT Eyes: Present: PERRL, EOM intact - Neck Neck: Present: supple, normal ROM - Respiratory Respiratory effort: normal Respiratory: negative: rales, rhonchi, wheezing - Cardiovascular Rhythm: regular Heart Sounds: Present: S1 & S2 - Extremities Extremities: no ischemia, No edema - Abdominal General gastrointestinal: soft, non-tender, non-distended, normal bowel sounds - Integumentary Integumentary: Present: clear, warm - Psychiatric Psychiatric: appropriate mood/affect, cooperative - Neurologic Neurologic: CNII-XII intact, moves all extremities Results - Labs CBC & Chem 7: 06/16/18 04:31 06/16/18 04:31 Labs: Laboratory Last Values WBC 10.0 K/mm3 (4.5-11.0) 06/16/18 04:31 RBC 4.17 M/mm3 (3.65-5.03) 06/16/18 04:31 Hgb 13.5 gm/dl (11.8-15.2) 06/16/18 04:31 Hct 39.8 % (35.5-45.6) 06/16/18 04:31 MCV 95 fl (84-94) H 06/16/18 04:31 MCH 32 pg (28-32) 06/16/18 04:31 MCHC 34 % (32-34) 06/16/18 04:31 RDW 12.5 % (13.2-15.2) L 06/16/18 04:31 Plt Count 271 K/mm3 (140-440) 06/16/18 04:31 Lymph % (Auto) 5.5 % (13.4-35.0) L 06/16/18 04:31 [place] % (Auto) 7.9 % (0.0-7.3) H 06/16/18 04:31 Eos % (Auto) 0.0 % (0.0-4.3) 06/16/18 04:31 Baso % (Auto) 0.3 % (0.0-1.8) 06/16/18 04:31 Lymph # 0.6 K/mm3 (1.2-5.4) L 06/16/18 04:31 [place] # 0.8 K/mm3 (0.0-0.8) 06/16/18 04:31 Eos # 0.0 K/mm3 (0.0-0.4) 06/16/18 04:31 Baso # 0.0 K/mm3 (0.0-0.1) 06/16/18 04:31 Add Manual Diff Complete 06/15/18 20:52 Total Counted 100 06/15/18 20:52 Seg Neutrophils % 86.3 % (40.0-70.0) H 06/16/18 04:31 Seg Neuts % (Manual) 84.0 % (40.0-70.0) H 06/15/18 20:52 Band Neutrophils % 4.0 % 06/15/18 20:52 Lymphocytes % (Manual) 9.0 % (13.4-35.0) L 06/15/18 20:52 Reactive Lymphs % (Man) 0 % 06/15/18 20:52 Monocytes % (Manual) 3.0 % (0.0-7.3) 06/15/18 20:52 Eosinophils % (Manual) 0 % (0.0-4.3) 06/15/18 20:52 Basophils % (Manual) 0 % (0.0-1.8) 06/15/18 20:52 Metamyelocytes % 0 % 06/15/18 20:52 Myelocytes % 0 % 06/15/18 20:52 Promyelocytes % 0 % 06/15/18 20:52 Blast Cells % 0 % 06/15/18 20:52 Nucleated RBC % Not Reportable 06/15/18 20:52 Seg Neutrophils # 8.6 K/mm3 (1.8-7.7) H 06/16/18 04:31 Seg Neutrophils # Man 10.8 K/mm3 (1.8-7.7) H 06/15/18 20:52 Band Neutrophils # 0.5 K/mm3 06/15/18 20:52 Lymphocytes # (Manual) 1.2 K/mm3 (1.2-5.4) 06/15/18 20:52 Abs React Lymphs (Man) 0.0 K/mm3 06/15/18 20:52 Monocytes # (Manual) 0.4 K/mm3 (0.0-0.8) 06/15/18 20:52 Eosinophils # (Manual) 0.0 K/mm3 (0.0-0.4) 06/15/18 20:52 Basophils # (Manual) 0.0 K/mm3 (0.0-0.1) 06/15/18 20:52 Metamyelocytes # 0.0 K/mm3 06/15/18 20:52 Myelocytes # 0.0 K/mm3 06/15/18 20:52 Promyelocytes # 0.0 K/mm3 06/15/18 20:52 Blast Cells # 0.0 K/mm3 06/15/18 20:52 WBC Morphology Not Reportable 06/15/18 20:52 Hypersegmented Neuts Not Reportable 06/15/18 20:52 Hyposegmented Neuts Not Reportable 06/15/18 20:52 Hypogranular Neuts Not Reportable 06/15/18 20:52 Smudge Cells Not Reportable 06/15/18 20:52 Toxic Granulation Not Reportable 06/15/18 20:52 Toxic Vacuolation Not Reportable 06/15/18 20:52 Dohle Bodies Not Reportable 06/15/18 20:52 Pelger-Huet Anomaly Not Reportable 06/15/18 20:52 Scottie Rods Not Reportable 06/15/18 20:52 Platelet Estimate Consistent w auto 06/15/18 20:52 Clumped Platelets Not Reportable 06/15/18 20:52 Plt Clumps, EDTA Not Reportable 06/15/18 20:52 Large Platelets Not Reportable 06/15/18 20:52 Giant Platelets Not Reportable 06/15/18 20:52 Platelet Satelliting Not Reportable 06/15/18 20:52 Plt Morphology Comment Not Reportable 06/15/18 20:52 RBC Morphology Not Reportable 06/15/18 20:52 Dimorphic RBCs Not Reportable 06/15/18 20:52 Polychromasia Not Reportable 06/15/18 20:52 Hypochromasia Not Reportable 06/15/18 20:52 Poikilocytosis Not Reportable 06/15/18 20:52 Anisocytosis Not Reportable 06/15/18 20:52 Microcytosis Not Reportable 06/15/18 20:52 Macrocytosis Not Reportable 06/15/18 20:52 Spherocytes Not Reportable 06/15/18 20:52 Pappenheimer Bodies Not Reportable 06/15/18 20:52 Sickle Cells Not Reportable 06/15/18 20:52 Target Cells Not Reportable 06/15/18 20:52 Tear Drop Cells Not Reportable 06/15/18 20:52 Ovalocytes Few 06/15/18 20:52 Helmet Cells Not Reportable 06/15/18 20:52 Jerome-Barronett Bodies Not Reportable 06/15/18 20:52 Ensign Rings Not Reportable 06/15/18 20:52 Groton Cells Not Reportable 06/15/18 20:52 Bite Cells Not Reportable 06/15/18 20:52 Crenated Cell Not Reportable 06/15/18 20:52 Elliptocytes Not Reportable 06/15/18 20:52 Acanthocytes (Spur) Not Reportable 06/15/18 20:52 Rouleaux Not Reportable 06/15/18 20:52 Hemoglobin C Crystals Not Reportable 06/15/18 20:52 Schistocytes Not Reportable 06/15/18 20:52 Malaria parasites Not Reportable 06/15/18 20:52 Wilmer Bodies Not Reportable 06/15/18 20:52 Hem Pathologist Commnt No 06/15/18 20:52 PT 12.8 Sec. (12.2-14.9) 06/04/18 09:20 INR 0.91 (0.87-1.13) 06/04/18 09:20 APTT 23.2 Sec. (24.2-36.6) L 06/04/18 09:20 D-Dimer 3533.79 ng/mlDDU (0-234) H 06/15/18 22:02 Sodium 135 mmol/L (137-145) L 06/16/18 04:31 Potassium 4.4 mmol/L (3.6-5.0) 06/16/18 04:31 Chloride 101.9 mmol/L (98-107) 06/16/18 04:31 Carbon Dioxide 26 mmol/L (22-30) 06/16/18 04:31 Anion Gap 12 mmol/L 06/16/18 04:31 BUN 10 mg/dL (9-20) 06/16/18 04:31 Creatinine 1.0 mg/dL (0.8-1.5) 06/16/18 04:31 Estimated GFR > 60 ml/min 06/16/18 04:31 BUN/Creatinine Ratio 10 % 06/16/18 04:31 Glucose 127 mg/dL (75-100) H 06/16/18 04:31 Calcium 9.2 mg/dL (8.4-10.2) 06/16/18 04:31 Total Bilirubin 0.90 mg/dL (0.1-1.2) 06/04/18 09:20 AST 42 units/L (5-40) H 06/04/18 09:20 ALT 45 units/L (7-56) 06/04/18 09:20 Alkaline Phosphatase 43 units/L (35-129) 06/04/18 09:20 Total Protein 7.0 g/dL (6.3-8.2) 06/04/18 09:20 Albumin 4.3 g/dL (3.9-5) 06/04/18 09:20 Albumin/Globulin Ratio 1.6 % 06/04/18 09:20 TSH 1.250 mlU/mL (0.270-4.200) 06/18/18 12:01 Free T4 1.25 ng/dL (0.76-1.46) 06/18/18 12:01 Blood Type A POSITIVE 06/15/18 06:30 Antibody Screen Negative 06/15/18 06:30 Active Medications - Current Medications Current Medications: Generic Name Dose Route Start Last Admin Trade Name Freq PRN Reason Stop Dose Admin Acetaminophen/Hydrocodone Bitart 2 each 06/15/18 10:56 06/19/18 02:18 [place] 5/325 PO 2 each Q4H PRN Administration Pain, Moderate (4-6) Amlodipine Besylate 5 mg 06/16/18 10:00 06/19/18 10:38 Norvasc PO 5 mg DAILY CHARISSE Administration Atorvastatin Calcium 10 mg 06/15/18 22:00 06/18/18 21:47 Lipitor PO 10 mg QHS CHARISSE Administration Hydralazine HCl 10 mg 06/15/18 17:31 Apresoline IV Q8HR PRN Hypertension Lactated Ringer's 1,000 mls @ 125 mls/hr 06/15/18 11:00 06/19/18 03:28 Lactated Ringers IV 125 mls/hr DIRECT CHARISSE Administration Metoprolol Tartrate 25 mg 06/18/18 13:00 06/19/18 10:39 Lopressor PO 25 mg BID CHARISSE Administration Morphine Sulfate 4 mg 06/15/18 10:56 06/19/18 10:39 Morphine IV 4 mg Q4H PRN Administration Pain , Severe (7-10) Naloxone HCl 0.1 mg 06/15/18 10:56 Narcan 0.4 Mg/1 Ml IV Q2MIN PRN Res Rate </= 8 or 02 SAT < 92% Ondansetron HCl 4 mg 06/15/18 10:56 Zofran IV Q8H PRN Nausea And Vomiting Tizanidine HCl 4 mg 06/15/18 11:00 Zanaflex PO PRN PRN Spasms Zolpidem Tartrate 5 mg 06/15/18 10:56 Ambien PO QHS PRN Sleep
== END 2018-06-19 13:34 | disposition home or self-care (01) | DRG 708 ==
LOC: OR 05:53 → 3B-SURG 10:56 → OBSVTOIN 06-17 14:16
PROVIDERS: ADMIT Urology; ATTEND Urology
PROC: 0VT04ZZ Resection of Prostate, Percutaneous Endoscopic Approach (ICD-10-PCS; principal; 2018-06-15)
PROC: 8E0W4CZ Robotic Assisted Procedure of Trunk Region, Percutaneous Endoscopic Approach (ICD-10-PCS; 2018-06-15)
PROC: 0VT34ZZ Resection of Bilateral Seminal Vesicles, Percutaneous Endoscopic Approach (ICD-10-PCS; 2018-06-15)
PROC: 0VTQ4ZZ Resection of Bilateral Vas Deferens, Percutaneous Endoscopic Approach (ICD-10-PCS; 2018-06-15)
DX: C61 Malignant neoplasm of prostate (principal); R00.0 Tachycardia, unspecified; I10 Essential (primary) hypertension; G89.29 Other chronic pain; M54.9 Dorsalgia, unspecified; M54.2 Cervicalgia; E78.2 Mixed hyperlipidemia; Z82.49 Family history of ischemic heart disease and other diseases of the circulatory system; Z79.899 Other long term (current) drug therapy
CPT/HCPCS: 36415; 71275; 80048; 80053; 84439; 84443; 85007; 85025; 85379; 85610; 85730; 86850; 86900; 86901; 88309; 88341; 88342; 88344; 93005; 93010; 93306; 93970; G0378; A9270-GY; J0360; J0690; J1100; J1170; J2250; J2270; J2370; J2405; J2704; J2710; J3010; J7120; Q9967; Q9968

== ENCOUNTER 2018-06-21 17:12 | Observation (INO) | payer BC ==
--- NOTE | 2018-06-21 17:29 | Emergency Department Report ---
Blank Doc - Documentation Documentation: 53 y old male return to ED cc of throat closing up on him periodically twice a day for couple of seconds and then opens back up states hiccups all day. no cp,sob just had prostrate surgery 06/15/18 d/c 06/18/18 MAin side Eval
[2018-06-21] MEDS ORDERED: NACL 0.9% 1000 ML 1,000 ML IV ONE (17:48)
--- NOTE | 2018-06-21 17:54 | Emergency Department Report ---
ED Shortness of Breath HPI - General Chief Complaint: Dyspnea/Respdistress Stated Complaint: SOB Time Seen by Provider: 06/21/18 17:26 Source: patient Mode of arrival: Ambulatory Limitations: No Limitations - History of Present Illness Initial Comments: Patient is a 33-year-old male that presents to the emergency room for shortness of breath, hiccups, and a sensation of his throat closing. Patient states he was here 5 days ago for a prostate surgery which required intubation. Patient states that postoperatively he had tachycardia and had a CT of the chest done which was negative. Patient states this morning he developed a sensation of his throat was closing which is causing him to be short of breath and also giving him hiccups. Patient denies fever chills. Patient denies chest pain. Patient denies abdominal pain. Patient denies dysuria. Patient states that he is having palpitations at times. MD Complaint: shortness of breath -: Sudden Severity: severe Consistency: intermittent Improves With: rest, upright position Worsens With: lying flat Context: other (recent anesthsia and recent surgery) Associated Symptoms: palpitations, other (hiccups) Treatments Prior to Arrival: none - Related Data Home Oxygen Therapy: No Home Medications Medication Instructions Recorded Confirmed Last Taken HYDROcodone/ACETAMINOPHEN 1 each PO PRN PRN 06/01/18 06/15/18 06/14/18 [Hydrocodone-Acetamin 5-325 mg] Rosuvastatin (Nf) [Crestor] 5 mg PO QHS 06/01/18 06/01/18 06/14/18 amLODIPine [Norvasc] 5 mg PO DAILY 06/01/18 06/15/18 06/15/18 05:30 tiZANidine [Zanaflex] 4 mg PO PRN PRN 06/01/18 06/01/18 06/14/18 Allergies Allergy/AdvReac Type Severity Reaction Status Date / Time No Known Allergies Allergy Verified 08/22/17 20:48 ED Review of Systems ROS: Stated complaint: SOB Other details as noted in HPI Constitutional: denies: chills, fever Eyes: denies: eye pain, eye discharge, vision change ENT: throat pain. denies: ear pain Respiratory: shortness of breath. denies: cough, wheezing Cardiovascular: palpitations. denies: chest pain Endocrine: no symptoms reported Gastrointestinal: denies: abdominal pain, nausea, diarrhea Genitourinary: denies: urgency, dysuria Musculoskeletal: denies: back pain, joint swelling, arthralgia Skin: denies: rash, lesions Neurological: denies: headache, weakness, paresthesias Psychiatric: denies: anxiety, depression Hematological/Lymphatic: denies: easy bleeding, easy bruising ED Past Medical Hx - Past Medical History Previous Medical History?: Yes Hx Hypertension: Yes (X 6 MONTHS) Hx GERD: Yes Hx HIV: No Additional medical history: chronic back pain. Hypercholesterolemia - Surgical History Past Surgical History?: Yes Additional Surgical History: Prostatectomy 06/15/18 - Family History Family history: no significant - Social History Smoking Status: Never Smoker Substance Use Type: Alcohol - Medications Home Medications: Home Medications Medication Instructions Recorded Confirmed Last Taken Type HYDROcodone/ACETAMINOPHEN 1 each PO PRN PRN 06/01/18 06/15/18 06/14/18 History [Hydrocodone-Acetamin 5-325 mg] Rosuvastatin (Nf) [Crestor] 5 mg PO QHS 06/01/18 06/01/18 06/14/18 History amLODIPine [Norvasc] 5 mg PO DAILY 06/01/18 06/15/18 06/15/18 05:30 History tiZANidine [Zanaflex] 4 mg PO PRN PRN 06/01/18 06/01/18 06/14/18 History ED Physical Exam - General Limitations: No Limitations General appearance: alert, in no apparent distress - Head Head exam: Present: atraumatic, normocephalic - Eye Eye exam: Present: normal appearance, PERRL Pupils: Present: normal accommodation - ENT ENT exam: Present: normal exam, normal orophraynx, mucous membranes moist, TM's normal bilaterally, normal external ear exam - Neck Neck exam: Present: normal inspection, full ROM. Absent: tenderness - Respiratory Respiratory exam: Present: normal lung sounds bilaterally. Absent: respiratory distress, wheezes, rales, rhonchi, stridor - Cardiovascular Cardiovascular Exam: Present: regular rate, normal rhythm. Absent: systolic murmur, diastolic murmur, rubs, gallop - GI/Abdominal GI/Abdominal exam: Present: soft, normal bowel sounds. Absent: distended, tenderness, guarding - Rectal Rectal exam: Present: deferred - Extremities Exam Extremities exam: Present: normal inspection - Back Exam Back exam: Present: normal inspection - Neurological Exam Neurological exam: Present: alert, oriented X3 - Psychiatric Psychiatric exam: Present: normal affect, normal mood - Skin Skin exam: Present: warm, dry, intact, normal color. Absent: rash ED Course Vital Signs 06/21/18 06/21/18 06/21/18 17:26 17:51 18:41 Temperature 98.1 F Pulse Rate 124 H 112 H Respiratory 20 18 18 Rate Blood Pressure 130/86 Blood Pressure 132/87 [Right] O2 Sat by Pulse 98 Oximetry 06/21/18 06/21/18 06/21/18 19:00 19:15 19:30 Temperature Pulse Rate 104 H 103 H 101 H Respiratory 27 H 24 22 Rate Blood Pressure 126/81 130/80 135/83 Blood Pressure [Right] O2 Sat by Pulse 98 98 98 Oximetry 06/21/18 06/21/18 06/21/18 19:45 19:53 20:00 Temperature 99.3 F Pulse Rate 107 H 107 H 103 H Respiratory 17 19 15 Rate Blood Pressure 144/82 125/80 Blood Pressure 126/81 [Right] O2 Sat by Pulse 98 98 98 Oximetry 06/21/18 06/21/18 06/21/18 20:15 20:30 20:45 Temperature Pulse Rate 102 H 110 H 101 H Respiratory 21 20 16 Rate Blood Pressure 135/82 136/81 130/80 Blood Pressure [Right] O2 Sat by Pulse 98 97 98 Oximetry 06/21/18 06/21/18 06/21/18 21:00 21:30 22:00 Temperature Pulse Rate 104 H 103 H 106 H Respiratory 14 18 19 Rate Blood Pressure 124/83 128/81 140/79 Blood Pressure [Right] O2 Sat by Pulse 98 96 97 Oximetry 06/21/18 06/21/18 06/21/18 22:30 22:58 23:00 Temperature Pulse Rate 106 H 110 H 108 H Respiratory 22 19 16 Rate Blood Pressure 135/87 132/83 127/82 Blood Pressure [Right] O2 Sat by Pulse 97 96 96 Oximetry 06/21/18 06/21/18 06/22/18 23:30 23:34 00:00 Temperature Pulse Rate 114 H 110 H 103 H Respiratory 22 22 23 Rate Blood Pressure 138/90 138/90 135/85 Blood Pressure [Right] O2 Sat by Pulse 97 97 97 Oximetry 06/22/18 01:18 Temperature Pulse Rate 114 H Respiratory Rate Blood Pressure 123/78 Blood Pressure [Right] O2 Sat by Pulse Oximetry - Reevaluation(s) Reevaluation #1: Discussed all results with patient. Patient states he's had 3 episodes while being in the ER. Patient had CT done. Patient will be admitted to the hospitalist service. Patient agrees with plan of care. The most recent episode witnessed by the pet care technician. master technician describes it as the patient unable to breathe and an order for them to clear his throat the patient has to cough. 06/22/18 01:23 - Consultations Consultation #1: Hospital was consulted for admission. Hospitalist to admit patient. Hospitalist to assume care of patient. 06/22/18 01:23 ED Medical Decision Making - Lab Data Result diagrams: 06/21/18 18:07 06/21/18 18:07 - EKG Data -: EKG Interpreted by [facility] EKG shows normal: sinus rhythm, axis, intervals, QRS complexes, ST-T waves Rate: tachycardia - Radiology Data Radiology results: report reviewed cc: JOSELITO MACIAS III, MD Fluoro Time In Minutes: PROCEDURE: XR CHEST 1V AP HISTORY: Dyspnea FINDINGS: Single frontal view of the chest was acquired. The heart is normal in size. The lungs appear clear. The pleura and mediastinum are within normal limits. IMPRESSION: No active disease in the chest PROCEDURE: CT ANGIO CHEST TECHNIQUE: A CT angiogram was performed following the intravenous injection of iodinated contrast. Rotational, sagittal, and coronal MIP reconstructions were reviewed. HISTORY: sob. elevated d-dimer COMPARISONS: Chest x-ray 06/21/2018 FINDINGS: There is no evidence of pulmonary embolus or aortic dissection. The thoracic aorta is normal in caliber. The heart size is normal. There is no evidence of pericardial effusion. The lungs are clear. Pleural fluid is not seen. There is no evidence of adenopathy. At the thoracic inlet the thyroid gland appears normal. The skeletal structures do not show any acute changes. There is a small hiatal hernia with circumferential mucosal thickening in the distal esophagus. Esophagitis cannot be excluded. There is fluid in the distal esophagus possibly related to GE reflux. In the upper abdomen there is a small diverticulum coming off the fundus of the stomach measuring 2 cm in diameter. IMPRESSION: No evidence of pulmonary embolus, aortic dissection, or vascular congestion.. No acute process in the chest. Small hiatal hernia with circumferential mucosal thickening suggesting esophagitis. Small amount of fluid in the distal esophagus most likely due to reflux. Small diverticulum coming off the fundus of the stomach. - Medical Decision Making Patient is a 53-year-old male presents emergency room for throat pain and a sensation that his throat was closing and shortness of breath and palpitations. Patient found to be tachycardic. Patient upon evident elevated d-dimer. Patient had a CTA which was negative. Patient had a chest x-ray which was negative. Patient had an EKG which showed sinus tach. Patient given fluids. Patient given Solu-Medrol. Patient also found to have a UTI. She was given antibiotics. Patient is status post prostate surgery for which she was intubated. The throat irritation and sensation that his throat was closing could be secondary to intubation. Patient will require further evaluation treatment. The patient was admitted to the hospitalist service for further evaluation treatment. Patient agrees with plan of care. - Differential Diagnosis no pain. Throat irritation. Throat fullness. Palpitations and sob Critical Care Time: Yes Critical care attestation.: If time is entered above; I have spent that time in minutes in the direct care of this critically ill patient, excluding procedure time. Critical Care Time: 45 minutes ED Disposition Clinical Impression: Throat pain in adult, SOB (shortness of breath), Hiccups, Throat fullness, Throat tightness, Esophagitis, S/P prostatectomy UTI (urinary tract infection) Qualifiers: Urinary tract infection type: acute cystitis Hematuria presence: with hematuria Qualified Code(s): N30.01 - Acute cystitis with hematuria Disposition: OP ADMIT IP TO THIS HOSP Is pt being admited?: Yes Does the pt Need Aspirin: No Condition: Critical Referrals: ARELIS MA MD [Primary Care Provider] - 3-5 Days Time of Disposition: 01:24
[2018-06-21 19:06] LABS: Hematocrit 35.9 % (35.5-45.6); Hemoglobin 12.5 gm/dl (11.8-15.2); Mean Corpuscular HGB Conc 35 % (32-34); Mean Corpuscular Volume 95 fl (84-94); Platelet Count 340 K/mm3 (140-440); Red Cell Distribution Width 12.9 % (13.2-15.2)
--- NOTE | 2018-06-21 19:09 | XRay Report ---
PROCEDURE: XR CHEST 1V AP HISTORY: Dyspnea FINDINGS: Single frontal view of the chest was acquired. The heart is normal in size. The lungs appea r clear. The pleura and mediastinum are within normal limits. IMPRESSION: No active disease in the chest This document is electronically signed by Isidro Russell MD., June 21 2018 07:07:17 PM ET
[2018-06-21 19:18] LABS: Creatine Kinase MB 4.1 ng/mL (0.0-4.0)
[2018-06-21 19:23] LABS: Alanine Aminotransferase 46 units/L (7-56); Albumin 3.8 g/dL (3.9-5); BUN/Creatinine Ratio 8; Blood Urea Nitrogen 11 mg/dL (9-20); Calcium 9.1 mg/dL (8.4-10.2); Hemolysis Index 6
[2018-06-21 19:52] LABS: Basophils % (Manual) 0 % (0.0-1.8); Total Cells Counted 100
[2018-06-21 19:53] LABS: Ovalocytes Few; Platelet Estimate Consistent w Auto; Poikilocytosis Few
[2018-06-21 22:10] LABS: Bacteria,Urine 1+ /HPF (Negative); Bilirubin,Urine NEG (Negative); Blood,Urine LG (Negative); Color,Urine Yellow (Yellow); Mucus,Urine FEW /HPF; Urobilinogen,Urine < 2.0 mg/dL (<2.0)
[2018-06-21 22:13] LABS: RBC,Urine > 182.0 /HPF (0.0-6.0)
[2018-06-21 22:19] LABS: Amphetamine Screen,Urine PRESUMPTIVE NEGATIVE; Benzodiazepines Screen,Urine PRESUMPTIVE NEGATIVE; Cannabinoid Screen,Urine PRESUMPTIVE NEGATIVE; Cocaine Screen,Urine PRESUMPTIVE NEGATIVE; Methadone Screen,Urine PRESUMPTIVE NEGATIVE; Opiate Screen,Urine PRESUMPTIVE NEGATIVE
[2018-06-21] MEDS ORDERED: SOLU-Medrol IV ONE (23:54)
[2018-06-21] MEDS ORDERED: ZOSYN/NS 4.5GM/100ML 4.5 GM/100 ML VIAL IV ONE (23:54)
--- NOTE | 2018-06-22 01:19 | Cat Scan Report ---
PROCEDURE: CT ANGIO CHEST TECHNIQUE: A CT angiogram was performed following the intravenous injection of iodinated contrast. R otational, sagittal, and coronal MIP reconstructions were reviewed. HISTORY: sob. elevated d-dimer COMPARISONS: Chest x-ray 06/21/2018 FINDINGS: There is no evidence of pulmonary embolus or aortic dissection. The thoracic aorta is normal in calib er. The heart size is normal. There is no evidence of pericardial effusion. The lungs are clear. Pleu ral fluid is not seen. There is no evidence of adenopathy. At the thoracic inlet the thyroid gland ap pears normal. The skeletal structures do not show any acute changes. There is a small hiatal hernia w ith circumferential mucosal thickening in the distal esophagus. Esophagitis cannot be excluded. There is fluid in the distal esophagus possibly related to GE reflux. In the upper abdomen there is a smal l diverticulum coming off the fundus of the stomach measuring 2 cm in diameter. IMPRESSION: No evidence of pulmonary embolus, aortic dissection, or vascular congestion.. No acute process in the chest. Small hiatal hernia with circumferential mucosal thickening suggesting esophagitis. Small amount of f luid in the distal esophagus most likely due to reflux. Small diverticulum coming off the fundus of the stomach. This document is electronically signed by Brayan Casey MD., June 22 2018 01:17:10 AM ET
[2018-06-22] MEDS ORDERED: PROVENTIL IH PRN (02:51)
[2018-06-22] MEDS ORDERED: TYLENOL PO PRN (02:51)
[2018-06-22] MEDS ORDERED: PERCOCET 5/325 PO PRN (02:51)
[2018-06-22] MEDS ORDERED: ZOFRAN IV PRN (02:51)
[2018-06-22] MEDS ORDERED: SODIUM CHLORIDE FLUSH SYRINGE 10 ML IV PRN (02:51)
[2018-06-22] MEDS: K-DUR PO SCH ×2 (03:19→10:13)
[2018-06-22] MEDS: LOPRESSOR PO SCH ×2 (03:19→10:14)
--- NOTE | 2018-06-22 03:40 | History and Physical Report ---
History of Present Illness Date of examination: 06/22/18 Chief complaint: Shortness of breath History of present illness: Pt is a 53 y/o -[place] male with history of hypertension who presented to the ED on account of 3 days history of shortness of breath. Patient underwent prostatectomy on 06/15/2018 during which he was intubated. While in the hospital after the surgery, he started experiencing shortness of breath. However, after he was discharged, he stated that he starting having episodes of shortness of breath during which his throat locks up and he has to struggle to breathe. He has associated hiccups. He denies cough, sore throat, pain or difficulty with swallowing, fever, chills, chest pain, palpitation, leg swelling, orthopnea or PND. No abdominal pain, constipation, diarrhea, dysuria frequency. No headaches, nausea, vomiting, lightheadedness, syncope or loss of consciousness Past History Past Medical History: hypertension, hyperlipidemia, other (prostate cancer, chronic back pain) Past Surgical History: Other (recent prostatectomy) Social history: other (patient admits to occasional alcohol use but denies tobacco or illicit drug use) Family history: other (reviewed and noncontributory) Medications and Allergies Allergies Allergy/AdvReac Type Severity Reaction Status Date / Time No Known Allergies Allergy Verified 08/22/17 20:48 Home Medications Medication Instructions Recorded Confirmed Last Taken Type HYDROcodone/ACETAMINOPHEN 1 each PO PRN PRN 06/01/18 06/15/18 06/14/18 History [Hydrocodone-Acetamin 5-325 mg] Rosuvastatin (Nf) [Crestor] 5 mg PO QHS 06/01/18 06/01/18 06/14/18 History amLODIPine [Norvasc] 5 mg PO DAILY 06/01/18 06/15/18 06/15/18 05:30 History tiZANidine [Zanaflex] 4 mg PO PRN PRN 06/01/18 06/01/18 06/14/18 History Active Meds: Active Medications Acetaminophen (Tylenol) 650 mg PO Q4H PRN PRN Reason: Pain MILD(1-3)/Fever >100.5/RODRIGES Albuterol (Proventil) 2.5 mg IH Q4HRT PRN PRN Reason: Shortness Of Breath Enoxaparin Sodium (Lovenox) 40 mg SUB-Q QDAY CHARISSE Methylprednisolone Sodium Succinate (Solu-Medrol) 60 mg IV Q8HR [facility] Metoprolol Tartrate (Lopressor) 25 mg PO BID [facility] Last Admin: 06/22/18 03:19 Dose: 25 mg Documented by: Ondansetron HCl (Zofran) 4 mg IV Q8H PRN PRN Reason: Nausea And Vomiting Oxycodone/Acetaminophen (Percocet 5/325) 1 tab PO Q6H PRN PRN Reason: Pain, Moderate (4-6) Pantoprazole Sodium (Protonix) 40 mg IV BID [facility] Potassium Chloride (K-Dur) 40 meq PO BID [facility] Stop: 06/22/18 10:01 Last Admin: 06/22/18 03:19 Dose: 40 meq Documented by: Sodium Chloride (Sodium Chloride Flush Syringe 10 Ml) 10 ml IV BID [facility] Sodium Chloride (Sodium Chloride Flush Syringe 10 Ml) 10 ml IV PRN PRN PRN Reason: LINE FLUSH Review of Systems All systems: negative (except as documented in the HPI, all other systems are reviewed and negative) Exam - Constitutional Vitals: Temp Pulse Resp BP Pulse Ox 99.3 F 117 H 23 132/88 97 06/21/18 19:53 06/22/18 03:19 06/22/18 00:00 06/22/18 03:19 06/22/18 00:00 General appearance: Present: no acute distress, well-nourished - EENT Eyes: Present: PERRL, EOM intact ENT: hearing intact, clear oral mucosa - Neck Neck: Present: supple, normal ROM - Respiratory Respiratory effort: normal Respiratory: bilateral: CTA - Cardiovascular Rhythm: regular (with tachycardia) Heart Sounds: Present: S1 & S2. Absent: rub, click - Extremities Extremities: No edema Peripheral Pulses: within normal limits - Abdominal General gastrointestinal: Present: soft, non-tender, non-distended, normal bowel sounds Male genitourinary: Present: deferred - Integumentary Integumentary: Present: clear, warm, dry - Musculoskeletal Musculoskeletal: gait normal, strength equal bilaterally - Psychiatric Psychiatric: appropriate mood/affect, intact judgment & insight - Neurologic Neurologic: CNII-XII intact, moves all extremities Results - Labs CBC & Chem 7: 06/21/18 18:07 06/21/18 18:07 Labs: Laboratory Last Values WBC 9.0 K/mm3 (4.5-11.0) 06/21/18 18:07 RBC 3.80 M/mm3 (3.65-5.03) 06/21/18 18:07 Hgb 12.5 gm/dl (11.8-15.2) 06/21/18 18:07 Hct 35.9 % (35.5-45.6) 06/21/18 18:07 MCV 95 fl (84-94) H 06/21/18 18:07 MCH 33 pg (28-32) H 06/21/18 18:07 MCHC 35 % (32-34) H 06/21/18 18:07 RDW 12.9 % (13.2-15.2) L 06/21/18 18:07 Plt Count 340 K/mm3 (140-440) 06/21/18 18:07 Add Manual Diff Complete 06/21/18 18:07 Total Counted 100 06/21/18 18:07 Seg Neuts % (Manual) 76.0 % (40.0-70.0) H 06/21/18 18:07 Band Neutrophils % 0 % 06/21/18 18:07 Lymphocytes % (Manual) 9.0 % (13.4-35.0) L 06/21/18 18:07 Reactive Lymphs % (Man) 0 % 06/21/18 18:07 Monocytes % (Manual) 11.0 % (0.0-7.3) H 06/21/18 18:07 Eosinophils % (Manual) 3.0 % (0.0-4.3) 06/21/18 18:07 Basophils % (Manual) 0 % (0.0-1.8) 06/21/18 18:07 Metamyelocytes % 1.0 % 06/21/18 18:07 Myelocytes % 0 % 06/21/18 18:07 Promyelocytes % 0 % 06/21/18 18:07 Blast Cells % 0 % 06/21/18 18:07 Nucleated RBC % 1.0 % (0.0-0.9) H 06/21/18 18:07 Seg Neutrophils # Man 6.8 K/mm3 (1.8-7.7) 06/21/18 18:07 Band Neutrophils # 0.0 K/mm3 06/21/18 18:07 Lymphocytes # (Manual) 0.8 K/mm3 (1.2-5.4) L 06/21/18 18:07 Abs React Lymphs (Man) 0.0 K/mm3 06/21/18 18:07 Monocytes # (Manual) 1.0 K/mm3 (0.0-0.8) H 06/21/18 18:07 Eosinophils # (Manual) 0.3 K/mm3 (0.0-0.4) 06/21/18 18:07 Basophils # (Manual) 0.0 K/mm3 (0.0-0.1) 06/21/18 18:07 Metamyelocytes # 0.1 K/mm3 06/21/18 18:07 Myelocytes # 0.0 K/mm3 06/21/18 18:07 Promyelocytes # 0.0 K/mm3 06/21/18 18:07 Blast Cells # 0.0 K/mm3 06/21/18 18:07 WBC Morphology Not Reportable 06/21/18 18:07 Hypersegmented Neuts Not Reportable 06/21/18 18:07 Hyposegmented Neuts Not Reportable 06/21/18 18:07 Hypogranular Neuts Not Reportable 06/21/18 18:07 Smudge Cells Not Reportable 06/21/18 18:07 Toxic Granulation Not Reportable 06/21/18 18:07 Toxic Vacuolation Not Reportable 06/21/18 18:07 Dohle Bodies Not Reportable 06/21/18 18:07 Pelger-Huet Anomaly Not Reportable 06/21/18 18:07 Socttie Rods Not Reportable 06/21/18 18:07 Platelet Estimate Consistent w auto 06/21/18 18:07 Clumped Platelets Not Reportable 06/21/18 18:07 Plt Clumps, EDTA Not Reportable 06/21/18 18:07 Large Platelets Not Reportable 06/21/18 18:07 Giant Platelets Not Reportable 06/21/18 18:07 Platelet Satelliting Not Reportable 06/21/18 18:07 Plt Morphology Comment Not Reportable 06/21/18 18:07 RBC Morphology Not Reportable 06/21/18 18:07 Dimorphic RBCs Not Reportable 06/21/18 18:07 Polychromasia Not Reportable 06/21/18 18:07 Hypochromasia Not Reportable 06/21/18 18:07 Poikilocytosis Few 06/21/18 18:07 Anisocytosis Not Reportable 06/21/18 18:07 Microcytosis Not Reportable 06/21/18 18:07 Macrocytosis Not Reportable 06/21/18 18:07 Spherocytes Not Reportable 06/21/18 18:07 Pappenheimer Bodies Not Reportable 06/21/18 18:07 Sickle Cells Not Reportable 06/21/18 18:07 Target Cells Not Reportable 06/21/18 18:07 Tear Drop Cells Not Reportable 06/21/18 18:07 Ovalocytes Few 06/21/18 18:07 Helmet Cells Not Reportable 06/21/18 18:07 [place] Bodies Not Reportable 06/21/18 18:07 [place] Rings Not Reportable 06/21/18 18:07 [place] Cells Not Reportable 06/21/18 18:07 Bite Cells Not Reportable 06/21/18 18:07 Crenated Cell Not Reportable 06/21/18 18:07 Elliptocytes Not Reportable 06/21/18 18:07 Acanthocytes (Spur) Not Reportable 06/21/18 18:07 Rouleaux Not Reportable 06/21/18 18:07 Hemoglobin C Crystals Not Reportable 06/21/18 18:07 Schistocytes Not Reportable 06/21/18 18:07 Malaria parasites Not Reportable 06/21/18 18:07 Wilmer Bodies Not Reportable 06/21/18 18:07 Hem Pathologist Commnt No 06/21/18 18:07 D-Dimer 3678.13 ng/mlDDU (0-234) H 06/21/18 18:07 Sodium 144 mmol/L (137-145) 06/21/18 18:07 Potassium 3.3 mmol/L (3.6-5.0) L 06/21/18 18:07 Chloride 104.5 mmol/L (98-107) 06/21/18 18:07 Carbon Dioxide 24 mmol/L (22-30) 06/21/18 18:07 Anion Gap 19 mmol/L 06/21/18 18:07 BUN 11 mg/dL (9-20) 06/21/18 18:07 Creatinine 1.3 mg/dL (0.8-1.5) 06/21/18 18:07 Estimated GFR > 60 ml/min 06/21/18 18:07 BUN/Creatinine Ratio 8 % 06/21/18 18:07 Glucose 135 mg/dL (75-100) H 06/21/18 18:07 Lactic Acid 1.30 mmol/L (0.7-2.0) 06/21/18 18:07 Calcium 9.1 mg/dL (8.4-10.2) 06/21/18 18:07 Total Bilirubin 0.80 mg/dL (0.1-1.2) 06/21/18 18:07 AST 34 units/L (5-40) 06/21/18 18:07 ALT 46 units/L (7-56) 06/21/18 18:07 Alkaline Phosphatase 47 units/L (35-129) 06/21/18 18:07 Total Creatine Kinase 97 units/L (55-170) 06/21/18 18:07 CK-MB (CK-2) 4.1 ng/mL (0.0-4.0) H 06/21/18 18:07 CK-MB (CK-2) Rel Index 4.2 (0-4) H 06/21/18 18:07 Troponin T < 0.010 ng/mL (0.00-0.029) 06/21/18 18:07 Total Protein 6.2 g/dL (6.3-8.2) L 06/21/18 18:07 Albumin 3.8 g/dL (3.9-5) L 06/21/18 18:07 Albumin/Globulin Ratio 1.6 % 06/21/18 18:07 Urine Color Yellow (Yellow) 06/21/18 21:41 Urine Turbidity Clear (Clear) 06/21/18 21:41 Urine pH 6.0 (5.0-7.0) 06/21/18 21:41 Ur Specific [place] 1.024 (1.003-1.030) 06/21/18 21:41 Urine Protein 30 mg/dl mg/dL (Negative) 06/21/18 21:41 Urine Glucose (UA) Neg mg/dL (Negative) 06/21/18 21:41 Urine Ketones 20 mg/dL (Negative) 06/21/18 21:41 Urine Blood Lg (Negative) 06/21/18 21:41 Urine Nitrite Neg (Negative) 06/21/18 21:41 Urine Bilirubin Neg (Negative) 06/21/18 21:41 Urine Urobilinogen < 2.0 mg/dL (<2.0) 06/21/18 21:41 Ur Leukocyte Esterase Tr (Negative) 06/21/18 21:41 Urine WBC (Auto) 26.0 /HPF (0.0-6.0) H 06/21/18 21:41 Urine RBC (Auto) > 182.0 /HPF (0.0-6.0) 06/21/18 21:41 Urine Bacteria (Auto) 1+ /HPF (Negative) 06/21/18 21:41 Urine Mucus Few /HPF 06/21/18 21:41 Urine Opiates Screen Presumptive negative 06/21/18 21:41 Urine Methadone Screen Presumptive negative 06/21/18 21:41 Ur Barbiturates Screen Presumptive negative 06/21/18 21:41 Ur Phencyclidine Scrn Presumptive negative 06/21/18 21:41 Ur Amphetamines Screen Presumptive negative 06/21/18 21:41 U Benzodiazepines Scrn Presumptive negative 06/21/18 21:41 Urine Cocaine Screen Presumptive negative 06/21/18 21:41 U Marijuana (THC) Screen Presumptive negative 06/21/18 21:41 Drugs of Abuse Note Disclamer 06/21/18 21:41 Assessment and Plan Assessment and plan: Dyspnea -Probably related to laryngeal edema due to recent intubation -Serial troponin monitoring -On IV steroids and when necessary nebs treatment Sinus tachycardia -On oral Lopressor -Status post IV fluid bolus -Echocardiogram for further eval Hypokalemia -On repletion, will monitor level Elevated d-dimer -CT chest negative for acute PE Hypertension -Controlled Hyperlipidemia -Continue statin Chronic lower back pain -On when necessary narcotics DVT prophylaxis with Lovenox Disposition: Patient will be placed on observation status pending further evaluation and treatment Time spent: 35 minutes
[2018-06-22] MEDS ORDERED: SOLU-Medrol IV SCH ×2 (06:00→08:13)
--- NOTE | 2018-06-22 08:15 | Progress Note ---
Assessment and Plan Assessment and plan: Pt is a 53 y/o -[place] male with history of hypertension who presented to the ED on account of 3 days history of shortness of breath. Patient underwent prostatectomy on 06/15/2018 during which he was intubated. While in the hospital after the surgery, he started experiencing shortness of breath. However, after he was discharged, he stated that he starting having episodes of shortness of breath during which his throat locks up and he has to struggle to breathe. He has associated hiccups. He denies cough, sore throat, pain or difficulty with swallowing, fever, chills, chest pain, palpitation, leg swelling, orthopnea or PND. No abdominal pain, constipation, diarrhea, dysuria frequency. No headaches, nausea, vomiting, lightheadedness, syncope or loss of consciousness Neck xray pending Chest xray -negative CTA CHEST -Negative for PE Dyspnea/lARYNGEOSPASM -Happened once 20 years ago - stop BB in the setting of layrngospasm -IV ppi - Duonebs -Consult anesthesiologist -Probably related to laryngeal edema due to recent intubation -Serial troponin monitoring -On IV steroids and when necessary nebs treatment - Check Neck Xray Sinus tachycardia -On oral Lopressor -Status post IV fluid bolus -Echocardiogram for further eval Hematuria with some wbc -secondary to resent urology procedure -recommend repeat on follow up with urology to ensure resolution Hypokalemia -On repletion, will monitor level Elevated d-dimer -CT chest negative for acute PE Hypertension -Controlled Hyperlipidemia -Continue statin Chronic lower back pain -On when necessary narcotics Esophagitis/GERD -On Protonix DVT prophylaxis with Lovenox Disposition: Patient will be placed on observation status pending further evaluation and treatment Time spent: 35 minutes History Interval history: Patient seen and examined, still with hiccups and shortness of breath which is intermittent. Per patient happened 20 years ago. Hospitalist Physical - Constitutional Vitals: Temp Pulse Resp BP Pulse Ox 98.6 F 85 20 115/71 96 06/22/18 06:38 06/22/18 06:38 06/22/18 06:38 06/22/18 06:38 06/22/18 06:38 General appearance: Present: no acute distress, well-nourished - EENT Eyes: Present: EOM intact ENT: hearing intact, clear oral mucosa, dentition normal - Neck Neck: Present: supple, normal ROM - Respiratory Respiratory effort: normal Respiratory: bilateral: CTA - Cardiovascular Rhythm: regular Heart Sounds: Present: S1 & S2. Absent: systolic murmur, diastolic murmur - Extremities Extremities: no ischemia, pulses intact, pulses symmetrical, No edema, normal temperature, normal color, Full ROM Peripheral Pulses: within normal limits - Abdominal General gastrointestinal: soft, non-tender, non-distended, normal bowel sounds - Integumentary Integumentary: Present: clear, warm, dry - Psychiatric Psychiatric: appropriate mood/affect, intact judgment & insight - Neurologic Neurologic: CNII-XII intact, moves all extremities - Allied Health Allied health notes reviewed: nursing Results - Labs CBC & Chem 7: 06/21/18 18:07 06/23/18 10:09 Labs: Laboratory Last Values WBC 9.0 K/mm3 (4.5-11.0) 06/21/18 18:07 RBC 3.80 M/mm3 (3.65-5.03) 06/21/18 18:07 Hgb 12.5 gm/dl (11.8-15.2) 06/21/18 18:07 Hct 35.9 % (35.5-45.6) 06/21/18 18:07 MCV 95 fl (84-94) H 06/21/18 18:07 MCH 33 pg (28-32) H 06/21/18 18:07 MCHC 35 % (32-34) H 06/21/18 18:07 RDW 12.9 % (13.2-15.2) L 06/21/18 18:07 Plt Count 340 K/mm3 (140-440) 06/21/18 18:07 Add Manual Diff Complete 06/21/18 18:07 Total Counted 100 06/21/18 18:07 Seg Neuts % (Manual) 76.0 % (40.0-70.0) H 06/21/18 18:07 Band Neutrophils % 0 % 06/21/18 18:07 Lymphocytes % (Manual) 9.0 % (13.4-35.0) L 06/21/18 18:07 Reactive Lymphs % (Man) 0 % 06/21/18 18:07 Monocytes % (Manual) 11.0 % (0.0-7.3) H 06/21/18 18:07 Eosinophils % (Manual) 3.0 % (0.0-4.3) 06/21/18 18:07 Basophils % (Manual) 0 % (0.0-1.8) 06/21/18 18:07 Metamyelocytes % 1.0 % 06/21/18 18:07 Myelocytes % 0 % 06/21/18 18:07 Promyelocytes % 0 % 06/21/18 18:07 Blast Cells % 0 % 06/21/18 18:07 Nucleated RBC % 1.0 % (0.0-0.9) H 06/21/18 18:07 Seg Neutrophils # Man 6.8 K/mm3 (1.8-7.7) 06/21/18 18:07 Band Neutrophils # 0.0 K/mm3 06/21/18 18:07 Lymphocytes # (Manual) 0.8 K/mm3 (1.2-5.4) L 06/21/18 18:07 Abs React Lymphs (Man) 0.0 K/mm3 06/21/18 18:07 Monocytes # (Manual) 1.0 K/mm3 (0.0-0.8) H 06/21/18 18:07 Eosinophils # (Manual) 0.3 K/mm3 (0.0-0.4) 06/21/18 18:07 Basophils # (Manual) 0.0 K/mm3 (0.0-0.1) 06/21/18 18:07 Metamyelocytes # 0.1 K/mm3 06/21/18 18:07 Myelocytes # 0.0 K/mm3 06/21/18 18:07 Promyelocytes # 0.0 K/mm3 06/21/18 18:07 Blast Cells # 0.0 K/mm3 06/21/18 18:07 WBC Morphology Not Reportable 06/21/18 18:07 Hypersegmented Neuts Not Reportable 06/21/18 18:07 Hyposegmented Neuts Not Reportable 06/21/18 18:07 Hypogranular Neuts Not Reportable 06/21/18 18:07 Smudge Cells Not Reportable 06/21/18 18:07 Toxic Granulation Not Reportable 06/21/18 18:07 Toxic Vacuolation Not Reportable 06/21/18 18:07 Dohle Bodies Not Reportable 06/21/18 18:07 Pelger-Huet Anomaly Not Reportable 06/21/18 18:07 [place] Rods Not Reportable 06/21/18 18:07 Platelet Estimate Consistent w auto 06/21/18 18:07 Clumped Platelets Not Reportable 06/21/18 18:07 Plt Clumps, EDTA Not Reportable 06/21/18 18:07 Large Platelets Not Reportable 06/21/18 18:07 Giant Platelets Not Reportable 06/21/18 18:07 Platelet Satelliting Not Reportable 06/21/18 18:07 Plt Morphology Comment Not Reportable 06/21/18 18:07 RBC Morphology Not Reportable 06/21/18 18:07 Dimorphic RBCs Not Reportable 06/21/18 18:07 Polychromasia Not Reportable 06/21/18 18:07 Hypochromasia Not Reportable 06/21/18 18:07 Poikilocytosis Few 06/21/18 18:07 Anisocytosis Not Reportable 06/21/18 18:07 Microcytosis Not Reportable 06/21/18 18:07 Macrocytosis Not Reportable 06/21/18 18:07 Spherocytes Not Reportable 06/21/18 18:07 Pappenheimer Bodies Not Reportable 06/21/18 18:07 Sickle Cells Not Reportable 06/21/18 18:07 Target Cells Not Reportable 06/21/18 18:07 Tear Drop Cells Not Reportable 06/21/18 18:07 Ovalocytes Few 06/21/18 18:07 Helmet Cells Not Reportable 06/21/18 18:07 [place] Bodies Not Reportable 06/21/18 18:07 [place] Rings Not Reportable 06/21/18 18:07 [place] Cells Not Reportable 06/21/18 18:07 Bite Cells Not Reportable 06/21/18 18:07 Crenated Cell Not Reportable 06/21/18 18:07 Elliptocytes Not Reportable 06/21/18 18:07 Acanthocytes (Spur) Not Reportable 06/21/18 18:07 Rouleaux Not Reportable 06/21/18 18:07 Hemoglobin C Crystals Not Reportable 06/21/18 18:07 Schistocytes Not Reportable 06/21/18 18:07 Malaria parasites Not Reportable 06/21/18 18:07 [place] Bodies Not Reportable 06/21/18 18:07 Hem Pathologist Commnt No 06/21/18 18:07 D-Dimer 3678.13 ng/mlDDU (0-234) H 06/21/18 18:07 Sodium 144 mmol/L (137-145) 06/21/18 18:07 Potassium 3.3 mmol/L (3.6-5.0) L 06/21/18 18:07 Chloride 104.5 mmol/L (98-107) 06/21/18 18:07 Carbon Dioxide 24 mmol/L (22-30) 06/21/18 18:07 Anion Gap 19 mmol/L 06/21/18 18:07 BUN 11 mg/dL (9-20) 06/21/18 18:07 Creatinine 1.3 mg/dL (0.8-1.5) 06/21/18 18:07 Estimated GFR > 60 ml/min 06/21/18 18:07 BUN/Creatinine Ratio 8 % 06/21/18 18:07 Glucose 135 mg/dL (75-100) H 06/21/18 18:07 Lactic Acid 1.30 mmol/L (0.7-2.0) 06/21/18 18:07 Calcium 9.1 mg/dL (8.4-10.2) 06/21/18 18:07 Magnesium 2.10 mg/dL (1.7-2.3) 06/22/18 03:41 Total Bilirubin 0.80 mg/dL (0.1-1.2) 06/21/18 18:07 AST 34 units/L (5-40) 06/21/18 18:07 ALT 46 units/L (7-56) 06/21/18 18:07 Alkaline Phosphatase 47 units/L (35-129) 06/21/18 18:07 Total Creatine Kinase 97 units/L (55-170) 06/21/18 18:07 CK-MB (CK-2) 4.1 ng/mL (0.0-4.0) H 06/21/18 18:07 CK-MB (CK-2) Rel Index 4.2 (0-4) H 06/21/18 18:07 Troponin T < 0.010 ng/mL (0.00-0.029) 06/22/18 05:40 NT-Pro-B Natriuret Pep 25.15 pg/mL (0-900) 06/22/18 03:41 Total Protein 6.2 g/dL (6.3-8.2) L 06/21/18 18:07 Albumin 3.8 g/dL (3.9-5) L 06/21/18 18:07 Albumin/Globulin Ratio 1.6 % 06/21/18 18:07 TSH 0.600 mlU/mL (0.270-4.200) 06/22/18 05:40 Urine Color Yellow (Yellow) 06/21/18 21:41 Urine Turbidity Clear (Clear) 06/21/18 21:41 Urine pH 6.0 (5.0-7.0) 06/21/18 21:41 Ur Specific [place] 1.024 (1.003-1.030) 06/21/18 21:41 Urine Protein 30 mg/dl mg/dL (Negative) 06/21/18 21:41 Urine Glucose (UA) Neg mg/dL (Negative) 06/21/18 21:41 Urine Ketones 20 mg/dL (Negative) 06/21/18 21:41 Urine Blood Lg (Negative) 06/21/18 21:41 Urine Nitrite Neg (Negative) 06/21/18 21:41 Urine Bilirubin Neg (Negative) 06/21/18 21:41 Urine Urobilinogen < 2.0 mg/dL (<2.0) 06/21/18 21:41 Ur Leukocyte Esterase Tr (Negative) 06/21/18 21:41 Urine WBC (Auto) 26.0 /HPF (0.0-6.0) H 06/21/18 21:41 Urine RBC (Auto) > 182.0 /HPF (0.0-6.0) 06/21/18 21:41 Urine Bacteria (Auto) 1+ /HPF (Negative) 06/21/18 21:41 Urine Mucus Few /HPF 06/21/18 21:41 Urine Opiates Screen Presumptive negative 06/21/18 21:41 Urine Methadone Screen Presumptive negative 06/21/18 21:41 Ur Barbiturates Screen Presumptive negative 06/21/18 21:41 Ur Phencyclidine Scrn Presumptive negative 06/21/18 21:41 Ur Amphetamines Screen Presumptive negative 06/21/18 21:41 U Benzodiazepines Scrn Presumptive negative 06/21/18 21:41 Urine Cocaine Screen Presumptive negative 06/21/18 21:41 U Marijuana (THC) Screen Presumptive negative 06/21/18 21:41 Drugs of Abuse Note Disclamer 06/21/18 21:41 Active Medications - Current Medications Current Medications: Generic Name Dose Route Start Last Admin Trade Name Freq PRN Reason Stop Dose Admin Acetaminophen 650 mg 06/22/18 02:51 Tylenol PO Q4H PRN Pain MILD(1-3)/Fever >100.5/RODRIGSE Albuterol 2.5 mg 06/22/18 02:51 Proventil IH Q4HRT PRN Shortness Of Breath Enoxaparin Sodium 40 mg 06/22/18 10:00 Lovenox SUB-Q QDAY CHARISSE Methylprednisolone Sodium Succinate 40 mg 06/22/18 08:13 Solu-Medrol IV Q8HR CHARISSE Metoprolol Tartrate 25 mg 06/22/18 02:57 06/22/18 03:19 Lopressor PO 25 mg BID CHARISSE Administration Ondansetron HCl 4 mg 06/22/18 02:51 Zofran IV Q8H PRN Nausea And Vomiting Oxycodone/Acetaminophen 1 tab 06/22/18 02:51 Percocet 5/325 PO Q6H PRN Pain, Moderate (4-6) Pantoprazole Sodium 40 mg 06/22/18 10:00 Protonix IV BID CHARISSE Potassium Chloride 40 meq 06/22/18 03:00 06/22/18 03:19 K-Dur PO 06/22/18 10:01 40 meq BID CHARISSE Administration Sodium Chloride 10 ml 06/22/18 10:00 Sodium Chloride Flush Syringe 10 Ml IV BID CHARISSE Sodium Chloride 10 ml 06/22/18 02:51 Sodium Chloride Flush Syringe 10 Ml IV PRN PRN LINE FLUSH
[2018-06-22] MEDS ORDERED: PROTONIX IV SCH (10:00)
[2018-06-22] MEDS: SODIUM CHLORIDE FLUSH SYRINGE 10 ML IV SCH ×2 (10:14→22:29)
[2018-06-22] MEDS: LOVENOX SUB-Q SCH (10:14)
[2018-06-22] MEDS: SOLU-Medrol IV SCH ×2 (14:01→22:28)
[2018-06-22] MEDS ORDERED: ZANAFLEX PO PRN (17:15)
[2018-06-22] MEDS ORDERED: NORCO 5/325 PO PRN (17:15)
[2018-06-22] MEDS: THORAZINE 50 MG in NACL 0.9% 100 ML IV PRN (17:59)
[2018-06-22] MEDS: PROTONIX IV SCH (17:59)
[2018-06-22] MEDS: DUONEB *Not for PRN Use IH SCH (20:17)
[2018-06-22] MEDS ORDERED: PROTONIX PO SCH (22:00)
[2018-06-22] MEDS ORDERED: NON-FORMULARY (Rosuvastatin (Nf) 5 MG) PO SCH (22:00)
[2018-06-23] MEDS: DUONEB *Not for PRN Use IH SCH ×4 (04:13→22:29)
[2018-06-23] MEDS: SOLU-Medrol IV SCH ×3 (06:25→22:21)
[2018-06-23] MEDS: THORAZINE 50 MG in NACL 0.9% 100 ML IV PRN (07:05)
[2018-06-23] MEDS: LOVENOX SUB-Q SCH (09:42)
[2018-06-23] MEDS: PROTONIX IV SCH (09:42)
[2018-06-23] MEDS: SODIUM CHLORIDE FLUSH SYRINGE 10 ML IV SCH ×2 (09:43→22:21)
[2018-06-23] MEDS ORDERED: NORVASC PO SCH (10:00)
[2018-06-23 11:05] LABS: BUN/Creatinine Ratio 12; Blood Urea Nitrogen 13 mg/dL (9-20); Calcium 9.1 mg/dL (8.4-10.2); Hemolysis Index 4
--- NOTE | 2018-06-23 12:18 | XRay Report ---
AP AND LATERAL SOFT TISSUES OF THE NECK: History: Shortness of breath. The contour of the upper airway appears within normal limits. The epiglottis is not enlarged. No prevertebral soft tissue swelling is apparent. No mass density or foreign body is evident. IMPRESSION: Normal study.
--- NOTE | 2018-06-23 14:03 | Progress Note ---
Assessment and Plan Assessment and plan: Pt is a 53 y/o -[place] male with history of hypertension who presented to the ED on account of 3 days history of shortness of breath. Patient underwent prostatectomy on 06/15/2018 during which he was intubated. While in the hospital after the surgery, he started experiencing shortness of breath. However, after he was discharged, he stated that he starting having episodes of shortness of breath during which his throat locks up and he has to struggle to breathe. He has associated hiccups. He denies cough, sore throat, pain or difficulty with swallowing, fever, chills, chest pain, palpitation, leg swelling, orthopnea or PND. No abdominal pain, constipation, diarrhea, dysuria frequency. No headaches, nausea, vomiting, lightheadedness, syncope or loss of consciousness Neck xray: normal study Chest xray -negative CTA CHEST -Negative for PE Dyspnea/lARYNGEOSPASM -Happened once 20 years ago - stopped BB in the setting of layrngospasm -IV ppi - Duonebs -Discussed with anesthesiologist doubts that this is related to intubation due to the timing -Patient feels that this is secondary to the hiccups. On This Improving as the hiccups Improve -I have recommended outpatient eval with ENT Sinus tachycardia -lopressor stopped -Recheck EKG -Status post IV fluid bolus -Echocardiogram cancelled, not sure why or by whom Hematuria with some wbc -secondary to resent urology procedure -recommend repeat on follow up with urology to ensure resolution Hypokalemia -On repletion, will monitor level Elevated d-dimer -CT chest negative for acute PE Hypertension -Controlled Hyperlipidemia -Continue statin Chronic lower back pain -On when necessary narcotics Esophagitis/GERD -On Protonix S/P Prostectomy Discussed with ,. Will evaluate patient inhouse. Lucero to be removed by DVT prophylaxis with Lovenox Disposition: Patient will be placed on observation status pending further evaluation and treatment History Interval history: Patient seen and examined, still with hiccups but improved with the thorazine and he links it with the intermittent shortness of breath and reports that the interval has actually improved. Hospitalist Physical - Physical exam Narrative exam: VITAL SIGNS: Reviewed. GENERAL: The patient appeared well nourished and normally developed, Vital signs as documented. HEAD: No signs of head trauma. EYES: Pupils are equal. Extraocular motions intact. EARS: Hearing grossly intact. MOUTH: Oropharynx is normal. NECK: No adenopathy, no JVD. CHEST: Chest with clear breath sounds bilaterally. No wheezes, rales, or rho nchi. CARDIAC: Regular rate and rhythm. S1 and S2, without murmurs, gallops, or rubs. VASCULAR: No Edema. Peripheral pulses normal and equal in all extremities. ABDOMEN: Soft, non tender and non distended. No rebound or guarding, and no masses palpated. Bowel Sounds normal. MUSCULOSKELETAL: Good range of motion of all major joints. Extremities without clubbing, cyanosis or edema. NEUROLOGIC EXAM: Alert and oriented x 3 No focal sensory or strength deficits. Speech normal. Follows commands. PSYCHIATRIC: Mood normal. SKIN: No rash or lesions. - Constitutional Vitals: Temp Pulse Resp BP Pulse Ox 97.4 F L 99 H 20 113/64 98 06/23/18 11:41 06/23/18 13:13 06/23/18 13:13 06/23/18 11:41 06/23/18 11:41 General appearance: Present: no acute distress, well-nourished Results - Labs CBC & Chem 7: 06/21/18 18:07 06/23/18 10:09 Labs: Laboratory Last Values WBC 9.0 K/mm3 (4.5-11.0) 06/21/18 18:07 RBC 3.80 M/mm3 (3.65-5.03) 06/21/18 18:07 Hgb 12.5 gm/dl (11.8-15.2) 06/21/18 18:07 Hct 35.9 % (35.5-45.6) 06/21/18 18:07 MCV 95 fl (84-94) H 06/21/18 18:07 MCH 33 pg (28-32) H 06/21/18 18:07 MCHC 35 % (32-34) H 06/21/18 18:07 RDW 12.9 % (13.2-15.2) L 06/21/18 18:07 Plt Count 340 K/mm3 (140-440) 06/21/18 18:07 Add Manual Diff Complete 06/21/18 18:07 Total Counted 100 06/21/18 18:07 Seg Neuts % (Manual) 76.0 % (40.0-70.0) H 06/21/18 18:07 Band Neutrophils % 0 % 06/21/18 18:07 Lymphocytes % (Manual) 9.0 % (13.4-35.0) L 06/21/18 18:07 Reactive Lymphs % (Man) 0 % 06/21/18 18:07 Monocytes % (Manual) 11.0 % (0.0-7.3) H 06/21/18 18:07 Eosinophils % (Manual) 3.0 % (0.0-4.3) 06/21/18 18:07 Basophils % (Manual) 0 % (0.0-1.8) 06/21/18 18:07 Metamyelocytes % 1.0 % 06/21/18 18:07 Myelocytes % 0 % 06/21/18 18:07 Promyelocytes % 0 % 06/21/18 18:07 Blast Cells % 0 % 06/21/18 18:07 Nucleated RBC % 1.0 % (0.0-0.9) H 06/21/18 18:07 Seg Neutrophils # Man 6.8 K/mm3 (1.8-7.7) 06/21/18 18:07 Band Neutrophils # 0.0 K/mm3 06/21/18 18:07 Lymphocytes # (Manual) 0.8 K/mm3 (1.2-5.4) L 06/21/18 18:07 Abs React Lymphs (Man) 0.0 K/mm3 06/21/18 18:07 Monocytes # (Manual) 1.0 K/mm3 (0.0-0.8) H 06/21/18 18:07 Eosinophils # (Manual) 0.3 K/mm3 (0.0-0.4) 06/21/18 18:07 Basophils # (Manual) 0.0 K/mm3 (0.0-0.1) 06/21/18 18:07 Metamyelocytes # 0.1 K/mm3 06/21/18 18:07 Myelocytes # 0.0 K/mm3 06/21/18 18:07 Promyelocytes # 0.0 K/mm3 06/21/18 18:07 Blast Cells # 0.0 K/mm3 06/21/18 18:07 WBC Morphology Not Reportable 06/21/18 18:07 Hypersegmented Neuts Not Reportable 06/21/18 18:07 Hyposegmented Neuts Not Reportable 06/21/18 18:07 Hypogranular Neuts Not Reportable 06/21/18 18:07 Smudge Cells Not Reportable 06/21/18 18:07 Toxic Granulation Not Reportable 06/21/18 18:07 Toxic Vacuolation Not Reportable 06/21/18 18:07 Dohle Bodies Not Reportable 06/21/18 18:07 Pelger-Huet Anomaly Not Reportable 06/21/18 18:07 Scottie Rods Not Reportable 06/21/18 18:07 Platelet Estimate Consistent w auto 06/21/18 18:07 Clumped Platelets Not Reportable 06/21/18 18:07 Plt Clumps, EDTA Not Reportable 06/21/18 18:07 Large Platelets Not Reportable 06/21/18 18:07 Giant Platelets Not Reportable 06/21/18 18:07 Platelet Satelliting Not Reportable 06/21/18 18:07 Plt Morphology Comment Not Reportable 06/21/18 18:07 RBC Morphology Not Reportable 06/21/18 18:07 Dimorphic RBCs Not Reportable 06/21/18 18:07 Polychromasia Not Reportable 06/21/18 18:07 Hypochromasia Not Reportable 06/21/18 18:07 Poikilocytosis Few 06/21/18 18:07 Anisocytosis Not Reportable 06/21/18 18:07 Microcytosis Not Reportable 06/21/18 18:07 Macrocytosis Not Reportable 06/21/18 18:07 Spherocytes Not Reportable 06/21/18 18:07 Pappenheimer Bodies Not Reportable 06/21/18 18:07 Sickle Cells Not Reportable 06/21/18 18:07 Target Cells Not Reportable 06/21/18 18:07 Tear Drop Cells Not Reportable 06/21/18 18:07 Ovalocytes Few 06/21/18 18:07 Helmet Cells Not Reportable 06/21/18 18:07 [place] Bodies Not Reportable 06/21/18 18:07 [place] Rings Not Reportable 06/21/18 18:07 Prole Cells Not Reportable 06/21/18 18:07 Bite Cells Not Reportable 06/21/18 18:07 Crenated Cell Not Reportable 06/21/18 18:07 Elliptocytes Not Reportable 06/21/18 18:07 Acanthocytes (Spur) Not Reportable 06/21/18 18:07 Rouleaux Not Reportable 06/21/18 18:07 Hemoglobin C Crystals Not Reportable 06/21/18 18:07 Schistocytes Not Reportable 06/21/18 18:07 Malaria parasites Not Reportable 06/21/18 18:07 Wilmer Bodies Not Reportable 06/21/18 18:07 Hem Pathologist Commnt No 06/21/18 18:07 D-Dimer 3678.13 ng/mlDDU (0-234) H 06/21/18 18:07 Sodium 141 mmol/L (137-145) 06/23/18 10:09 Potassium 3.8 mmol/L (3.6-5.0) 06/23/18 10:09 Chloride 106.6 mmol/L (98-107) 06/23/18 10:09 Carbon Dioxide 23 mmol/L (22-30) 06/23/18 10:09 Anion Gap 15 mmol/L 06/23/18 10:09 BUN 13 mg/dL (9-20) 06/23/18 10:09 Creatinine 1.1 mg/dL (0.8-1.5) 06/23/18 10:09 Estimated GFR > 60 ml/min 06/23/18 10:09 BUN/Creatinine Ratio 12 % 06/23/18 10:09 Glucose 186 mg/dL (75-100) H 06/23/18 10:09 Lactic Acid 1.30 mmol/L (0.7-2.0) 06/21/18 18:07 Calcium 9.1 mg/dL (8.4-10.2) 06/23/18 10:09 Magnesium 2.10 mg/dL (1.7-2.3) 06/22/18 03:41 Total Bilirubin 0.80 mg/dL (0.1-1.2) 06/21/18 18:07 AST 34 units/L (5-40) 06/21/18 18:07 ALT 46 units/L (7-56) 06/21/18 18:07 Alkaline Phosphatase 47 units/L (35-129) 06/21/18 18:07 Total Creatine Kinase 97 units/L (55-170) 06/21/18 18:07 CK-MB (CK-2) 4.1 ng/mL (0.0-4.0) H 06/21/18 18:07 CK-MB (CK-2) Rel Index 4.2 (0-4) H 06/21/18 18:07 Troponin T < 0.010 ng/mL (0.00-0.029) 06/22/18 05:40 NT-Pro-B Natriuret Pep 25.15 pg/mL (0-900) 06/22/18 03:41 Total Protein 6.2 g/dL (6.3-8.2) L 06/21/18 18:07 Albumin 3.8 g/dL (3.9-5) L 06/21/18 18:07 Albumin/Globulin Ratio 1.6 % 06/21/18 18:07 TSH 0.600 mlU/mL (0.270-4.200) 06/22/18 05:40 Urine Color Yellow (Yellow) 06/21/18 21:41 Urine Turbidity Clear (Clear) 06/21/18 21:41 Urine pH 6.0 (5.0-7.0) 06/21/18 21:41 Ur Specific [place] 1.024 (1.003-1.030) 06/21/18 21:41 Urine Protein 30 mg/dl mg/dL (Negative) 06/21/18 21:41 Urine Glucose (UA) Neg mg/dL (Negative) 06/21/18 21:41 Urine Ketones 20 mg/dL (Negative) 06/21/18 21:41 Urine Blood Lg (Negative) 06/21/18 21:41 Urine Nitrite Neg (Negative) 06/21/18 21:41 Urine Bilirubin Neg (Negative) 06/21/18 21:41 Urine Urobilinogen < 2.0 mg/dL (<2.0) 06/21/18 21:41 Ur Leukocyte Esterase Tr (Negative) 06/21/18 21:41 Urine WBC (Auto) 26.0 /HPF (0.0-6.0) H 06/21/18 21:41 Urine RBC (Auto) > 182.0 /HPF (0.0-6.0) 06/21/18 21:41 Urine Bacteria (Auto) 1+ /HPF (Negative) 06/21/18 21:41 Urine Mucus Few /HPF 06/21/18 21:41 Urine Opiates Screen Presumptive negative 06/21/18 21:41 Urine Methadone Screen Presumptive negative 06/21/18 21:41 Ur Barbiturates Screen Presumptive negative 06/21/18 21:41 Ur Phencyclidine Scrn Presumptive negative 06/21/18 21:41 Ur Amphetamines Screen Presumptive negative 06/21/18 21:41 U Benzodiazepines Scrn Presumptive negative 06/21/18 21:41 Urine Cocaine Screen Presumptive negative 06/21/18 21:41 U Marijuana (THC) Screen Presumptive negative 06/21/18 21:41 Drugs of Abuse Note Disclamer 06/21/18 21:41 Active Medications - Current Medications Current Medications: Generic Name Dose Route Start Last Admin Trade Name Freq PRN Reason Stop Dose Admin Acetaminophen 650 mg 06/22/18 02:51 Tylenol PO Q4H PRN Pain MILD(1-3)/Fever >100.5/RODRIGES Acetaminophen/Hydrocodone Bitart 1 each 06/22/18 17:15 06/22/18 18:32 [place] 5/325 PO 1 each PRN PRN Administration Pain , Severe (7-10) Albuterol 2.5 mg 06/22/18 02:51 Proventil IH Q4HRT PRN Shortness Of Breath Albuterol/Ipratropium 1 ampul 06/22/18 20:00 06/23/18 13:11 Duoneb *Not For Prn Use* IH 1 ampul Q6HRT CHARISSE Administration Amlodipine Besylate 5 mg 06/23/18 10:00 06/23/18 09:41 Norvasc PO 5 mg DAILY CHARISSE Administration Atorvastatin Calcium 10 mg 06/22/18 22:00 06/22/18 22:28 Lipitor PO 10 mg QHS CHARISSE Administration Enoxaparin Sodium 40 mg 06/22/18 10:00 06/23/18 09:42 Lovenox SUB-Q 40 mg QDAY CHARISSE Administration Chlorpromazine HCl 50 mg/ 102 mls @ 100 mls/hr 06/22/18 17:13 06/23/18 07:05 Sodium Chloride IV 100 mls/hr Q4H PRN Administration Hiccups Methylprednisolone Sodium Succinate 40 mg 06/22/18 14:00 06/23/18 13:03 Solu-Medrol IV 40 mg Q8HR CHARISSE Administration Ondansetron HCl 4 mg 06/22/18 02:51 Zofran IV Q8H PRN Nausea And Vomiting Oxycodone/Acetaminophen 1 tab 06/22/18 02:51 Percocet 5/325 PO Q6H PRN Pain, Moderate (4-6) Pantoprazole Sodium 40 mg 06/22/18 18:00 06/23/18 09:42 Protonix IV 40 mg QDAY CHARISSE Administration Sodium Chloride 10 ml 06/22/18 10:00 06/23/18 09:43 Sodium Chloride Flush Syringe 10 Ml IV 10 ml BID CHARISSE Administration Sodium Chloride 10 ml 06/22/18 02:51 Sodium Chloride Flush Syringe 10 Ml IV PRN PRN LINE FLUSH Tizanidine HCl 4 mg 06/22/18 17:15 Zanaflex PO PRN PRN Spasms
[2018-06-23] MEDS: XANAX PO SCH ×2 (16:02→22:23)
[2018-06-23] MEDS: CARDIZEM PO SCH ×2 (18:08→23:50)
[2018-06-24] MEDS: DUONEB *Not for PRN Use IH SCH ×2 (01:06→08:19)
[2018-06-24] MEDS: CARDIZEM PO SCH (05:41)
[2018-06-24] MEDS: SOLU-Medrol IV SCH (05:49)
--- NOTE | 2018-06-24 08:07 | Event Note ---
Date: 06/24/18 s/p prostatectomy path T2 malu 7 dc au this am
[2018-06-24] MEDS: XANAX PO SCH (10:08)
[2018-06-24] MEDS: LOVENOX SUB-Q SCH (10:08)
[2018-06-24] MEDS: PROTONIX IV SCH (10:09)
--- NOTE | 2018-06-24 13:30 | Discharge Summary ---
Providers - Providers Date of Admission: 06/22/18 02:51 Attending physician: MONAE BURROWS MD 06/22/18 17:19 Consult to Anesthesiology [CONS] Routine Consulting Provider: NABEEL NG Reason For Exam: LYRANGOSPASM POST SURGERY 06/23/18 14:07 Consult to Physician [CONS] Routine Comment: Consulting Provider: HENRIK TEMPLETON Physician Instructions: Reason For Exam: recent prostectomy [facility] Reason for admission: Shortness of breath Condition: Stable Hospital course: Pt is a 53 y/o -Citizen Of [place] male with history of hypertension who presented to the ED on account of 3 days history of shortness of breath. Patient underwent prostatectomy on 06/15/2018 during which he was intubated. While in the hospital after the surgery, he started experiencing shortness of breath. However, after he was discharged, he stated that he starting having episodes of shortness of breath during which his throat locks up and he has to struggle to breathe. He has associated hiccups. He denies cough, sore throat, pain or difficulty with swallowing, fever, chills, chest pain, palpitation, leg swelling, orthopnea or PND. No abdominal pain, constipation, diarrhea, dysuria frequency. No headaches, nausea, vomiting, lightheadedness, syncope or loss of consciousness. Investigation was noticed that the patient's shortness of breath happens and is associated with the hiccups. I did discuss with anesthesiology and also this is related to the intubation. Initially had stopped the beta theron due to concern for laryngeal spasm. Subsequently Cardizem was started. Patient's symptoms improved with addition of Ativan and Thorazine, also recommended an outpatient evaluation by ENT. The patient verbalized understanding during the course of the patient unfortunately lost his mother earlier this morning and is being discharged. EKG did not demonstrate any atrial fibrillation showed sinus tachycardia recommended cardiology. Outpatient in addition to continue follow-up with urologist who also saw the patient in house and patient will follow-up with them for pathology report. Neck xray: normal study Chest xray -negative CTA CHEST -Negative for PE Discharge diagnosis Laryngeal spasm with associated dyspnea Sinus tachycardia hematuria with some wbc Hypokalemia Elevated d-dimer Hypertension Hyperlipidemia Chronic lower back pain Esophagitis/GERD s/p robotic prostatectomy last week Disposition: DC-01 TO HOME OR SELFCARE Time spent for discharge: 35 MINS Core Measure Documentation - Palliative Care Palliative Care/ Comfort Measures: Not Applicable - Core Measures Any of the following diagnoses?: none Exam - Physical Exam Narrative exam: VITAL SIGNS: Reviewed. GENERAL: The patient appeared well nourished and normally developed, Vital signs as documented. HEAD: No signs of head trauma. EYES: Pupils are equal. Extraocular motions intact. EARS: Hearing grossly intact. MOUTH: Oropharynx is normal. NECK: No adenopathy, no JVD. CHEST: Chest with clear breath sounds bilaterally. No wheezes, rales, or rhonchi. CARDIAC: Regular rate and rhythm. S1 and S2, without murmurs, gallops, or rubs. VASCULAR: No Edema. Peripheral pulses normal and equal in all extremities. ABDOMEN: Soft, non tender and non distended. No rebound or guarding, and no masses palpated. Bowel Sounds normal. MUSCULOSKELETAL: Good range of motion of all major joints. Extremities without clubbing, cyanosis or edema. NEUROLOGIC EXAM: Alert and oriented x 3 No focal sensory or strength deficits. Speech normal. Follows commands. PSYCHIATRIC: Mood normal. SKIN: No rash or lesions. - Constitutional Vitals: Temp Pulse Resp BP Pulse Ox 98.3 F 100 H 16 145/79 98 06/24/18 05:31 06/24/18 08:00 06/24/18 08:00 06/24/18 05:41 06/24/18 05:31 Plan Activity: advance as tolerated, fall precautions Diet: low fat Follow up with: [facility] [Primary Care Provider] - 3-5 Days ADDISON NATHAN MD [Staff Physician] - 7 Days HENRIK TEMPLETON MD [Staff Physician] - 7 Days DARBY PÉREZ MD [Staff Physician] - 7 Days Prescriptions: dilTIAZem CD [Cardizem Cd] 120 mg PO DAILY #30 cap Prednisone [predniSONE 5 mg (6-Day Pack, 21 Tabs)] 5 mg PO .TAPER #1 tab.ds.pk chlorproMAZINE [Thorazine] 25 mg PO Q6H PRN #30 tab PRN Reason: Hiccups ALPRAZolam [Xanax TAB] 0.25 mg PO Q12HR #14 tablet
[2018-06-24 14:03] VITALS: BP 136/89
--- NOTE | 2018-06-24 15:18 | Progress Note ---
Subjective Date of service: 06/24/18 Interval history: s/p robotic prostatectomy last week Feels better au removed this am---voiding well (instructions on kegel exercises given) ok to dc home path report T2 - negative margins - discussed with pt appt in 3-4 wks Objective - Constitutional Vitals: Vital Signs - 12hr 06/24/18 06/24/18 06/24/18 05:31 05:41 08:00 Temperature 98.3 F Pulse Rate 99 H 102 H Pulse Rate [ 100 H Bilateral] Respiratory 18 Rate Respiratory 16 Rate [Bilateral ] Blood Pressure 143/79 145/79 O2 Sat by Pulse 98 Oximetry 06/24/18 13:07 Temperature 98.9 F Pulse Rate 110 H Pulse Rate [ Bilateral] Respiratory 22 Rate Respiratory Rate [Bilateral ] Blood Pressure 136/89 O2 Sat by Pulse 97 Oximetry - Labs CBC & Chem 7: 06/21/18 18:07 06/23/18 10:09 Medications & Allergies - Medications Allergies/Adverse Reactions: Allergies No Known Allergies Allergy (Verified 08/22/17 20:48) Home Medications: Home Medications Medication Instructions Recorded Confirmed Last Taken Type HYDROcodone/ACETAMINOPHEN 1 each PO PRN PRN 06/01/18 06/15/18 06/14/18 History [Hydrocodone-Acetamin 5-325 mg] Rosuvastatin (Nf) [Crestor] 5 mg PO QHS 06/01/18 06/01/18 06/14/18 History amLODIPine [Norvasc] 5 mg PO DAILY 06/01/18 06/15/18 06/15/18 05:30 History tiZANidine [Zanaflex] 4 mg PO PRN PRN 06/01/18 06/01/18 06/14/18 History ALPRAZolam [Xanax TAB] 0.25 mg PO Q12HR #14 tablet 06/24/18 Unknown Rx Prednisone [predniSONE 5 mg (6-Day 5 mg PO .TAPER #1 tab.ds.pk 06/24/18 Unknown Rx Pack, 21 Tabs)] chlorproMAZINE [Thorazine] 25 mg PO Q6H PRN #30 tab 06/24/18 Unknown Rx dilTIAZem CD [Cardizem Cd] 120 mg PO DAILY #30 cap 06/24/18 Unknown Rx Active Medications: Generic Name Dose Route Start Last Admin Trade Name Freq PRN Reason Stop Dose Admin Acetaminophen 650 mg 06/22/18 02:51 Tylenol PO Q4H PRN Pain MILD(1-3)/Fever >100.5/RODRIGES Acetaminophen/Hydrocodone Bitart 1 each 06/22/18 17:15 06/22/18 18:32 [place] 5/325 PO 1 each PRN PRN Administration Pain , Severe (7-10) Albuterol 2.5 mg 06/22/18 02:51 Proventil IH Q4HRT PRN Shortness Of Breath Albuterol/Ipratropium 1 ampul 06/22/18 20:00 06/24/18 08:19 Duoneb *Not For Prn Use* IH 1 ampul Q6HRT CHARISSE Administration Alprazolam 0.25 mg 06/23/18 15:00 06/24/18 10:08 Xanax PO 0.25 mg Q12HR CHARISSE Administration Atorvastatin Calcium 10 mg 06/22/18 22:00 06/23/18 22:20 Lipitor PO 10 mg QHS CHARISSE Administration Diltiazem HCl 30 mg 06/23/18 18:00 06/24/18 05:41 Cardizem PO 30 mg Q6HR CHARISSE Administration Enoxaparin Sodium 40 mg 06/22/18 10:00 06/24/18 10:08 Lovenox SUB-Q 40 mg QDAY CHARISSE Administration Chlorpromazine HCl 50 mg/ 102 mls @ 100 mls/hr 06/22/18 17:13 06/23/18 07:05 Sodium Chloride IV 100 mls/hr Q4H PRN Administration Hiccups Methylprednisolone Sodium Succinate 40 mg 06/22/18 14:00 06/24/18 05:49 Solu-Medrol IV 40 mg Q8HR CHARISSE Administration Ondansetron HCl 4 mg 06/22/18 02:51 Zofran IV Q8H PRN Nausea And Vomiting Oxycodone/Acetaminophen 1 tab 06/22/18 02:51 Percocet 5/325 PO Q6H PRN Pain, Moderate (4-6) Pantoprazole Sodium 40 mg 06/22/18 18:00 06/24/18 10:09 Protonix IV 40 mg QDAY CHARISSE Administration Sodium Chloride 10 ml 06/22/18 10:00 06/23/18 22:21 Sodium Chloride Flush Syringe 10 Ml IV 10 ml BID CHARISSE Administration Sodium Chloride 10 ml 06/22/18 02:51 Sodium Chloride Flush Syringe 10 Ml IV PRN PRN LINE FLUSH Tizanidine HCl 4 mg 06/22/18 17:15 Zanaflex PO PRN PRN Spasms
== END 2018-06-24 16:53 | disposition home or self-care (01) ==
LOC: ED 17:12 → 3A 06-22 02:51 → INTOOBSV 06-22 02:51
PROVIDERS: ADMIT Internal Medicine; ATTEND Internal Medicine
DX: J38.5 Laryngeal spasm (principal); K20.9 Esophagitis, unspecified; K21.9 Gastro-esophageal reflux disease without esophagitis; R06.00 Dyspnea, unspecified; R00.0 Tachycardia, unspecified; E87.6 Hypokalemia; I10 Essential (primary) hypertension; E78.5 Hyperlipidemia, unspecified; M54.5 Low back pain; G89.29 Other chronic pain; R79.1 Abnormal coagulation profile; R31.0 Gross hematuria; Z90.79 Acquired absence of other genital organ(s); Z79.899 Other long term (current) drug therapy
CPT/HCPCS: 36415; 70360; 71045; 71275; 80048; 80053; 80307; 81001; 82140; 82550; 82553; 83735; 83880; 84443; 84484; 85007; 85025; 85379; 93005; 93010; 94640; 96365; 96366; 96367; 96372; 96375; 96376; 99291; A9270; C9113; G0378; J1650; J2543; J2920; J2930; J3230; J7030; Q9967